=== PATIENT | female | born 1955 | race Two or more races ===

== ENCOUNTER 2017-01-08 21:38 | Inpatient (IN) | payer MEDICAID ==
[~2017-01-08] VITALS: Ht 175.3 cm; Wt 74.8 kg
[~2017-01-08 21:38] MED LIST: ASPI81CH43 PO; BISA-51 PO; CETI10CH PO; DICY20TA66 PO; DILT120C45 PO; FAM20T PO
[2017-01-08 22:37] LABS: Basophils # (auto) 0 uL; Basophils % (auto) 0.3 % (0.0-2.0); Eosinophils # (auto) 0 uL; Eosinophils % (auto) 0.3 % (0.0-7.0); Hematocrit 30.6 % (36.0-46.0); Hemoglobin 9.8 g/dL (12.2-16.2); Lymphocytes # (auto) 0.8 uL; Lymphocytes % (auto) 5.9 % (10.0-50.0); Mean Corpuscular Hemoglobin 29.9 pg (28.0-32.0); Mean Corpuscular Hgb Conc. 32.1 g/dL (32.0-36.0); Mean Corpuscular Volume 93.1 fL (80.0-100.0); Mean Platelet Volume 9.2 fL (7.4-10.4); Monocytes # (auto) 0.2 uL; Monocytes % (auto) 1.7 % (0.0-12.0); Neutrophils # (auto) 11.8 uL; Neutrophils % (auto) 91.8 % (37.0-80.0); Platelet Count (auto) 310 10^3/uL (140-450); Red Cell Distribution Width 14.3 % (11.6-16.0); White Blood Cell 12.8 10^3/uL (4.4-10.8)
[2017-01-08 22:41] LABS: Albumin 3.5 g/dL (3.4-5.0); Anion Gap 17 (5-15); Aspartate Aminotransferase 16 U/L (15-37); BUN/Creatinine Ratio 10.5; Blood Urea Nitrogen 75 mg/dL (7-18); Calcium 8.8 mg/dL (8.5-10.1); Carbon Dioxide 15 mmol/L (21-32); Chloride 107 mmol/L (98-107); GFR African American 8 mL/min; GFR Non-African American 6 mL/min; Glucose 160 mg/dL (74-106); Magnesium 2.8 mg/dL (1.6-2.6); Potassium 4.1 mmol/L (3.5-5.1); Sodium 139 mmol/L (136-145)
[2017-01-08 22:46] LABS: Alkaline Phosphatase 75 U/L (45-117); Bilirubin, Total 0.7 mg/dL (0.2-1.0)
[2017-01-09] MEDS ORDERED: ONDANSETRON HCL 4 MG/2 ML VIAL IV ONE ×2 (01:00→03:15)
[2017-01-09] MEDS ORDERED: cloNIDine HCL 0.1 MG TAB PO ONE (01:00)
[2017-01-09 01:01] LABS: Urine Bilirubin Negative (Negative); Urine Color Yellow (Yellow); Urine Hyaline Cast FEW /lpf (0 - 2); Urine Nitrite Negative (Negative); Urine RBC 40 /hpf (0 - 4); Urine Squamous Epithelial Cell FEW /hpf (<5); Urine Urobilinogen Normal (Negative); Urine pH 6.5 (5.0-8.0)
[2017-01-09 01:02] LABS: Urine Blood 2+ /uL (Negative); Urine Glucose 3+ mg/dL (Normal); Urine Ketone 1+ (Negative)
[2017-01-09] MEDS ORDERED: LABETALOL HCL 5 MG/ML 4ML SYRINGE IV ONE (02:43)
[2017-01-09] MEDS ORDERED: MORPHINE SULFATE 4 MG/ML SYRG IV ONE (03:15)
[2017-01-09] MEDS ORDERED: PROMETHAZINE HCL 25 MG/ML 1ML IV PRN (07:45)
[2017-01-09] MEDS ORDERED: ALBUTEROL SULF 2.5 MG/0.5ML(0.5%) NEB SOLN NEB PRN (07:45)
[2017-01-09] MEDS ORDERED: HYDROcodone-ACET 5/325MG TAB PO PRN (07:45)
[2017-01-09] MEDS ORDERED: NITROGLYCERIN 0.4 MG SL TAB SL PRN (07:45)
[2017-01-09] MEDS ORDERED: LORazepam 0.5 MG TAB PO PRN (07:45)
[2017-01-09] MEDS ORDERED: MORPHINE SULF INJ 2 MG/ML SYRINGE 1ML IV PRN ×2 (07:45)
[2017-01-09] MEDS ORDERED: LACTULOSE 20Gm/30ML SOLN PO PRN (07:45)
[2017-01-09] MEDS ORDERED: DEXTROSE (50%) 50ML SYRG IV PRN (07:45)
[2017-01-09] MEDS ORDERED: ACETAMINOPHEN 500 MG TAB PO PRN (07:45)
[2017-01-09] MEDS ORDERED: TEMAZEPAM 15 MG CAP PO PRN (07:45)
[2017-01-09 08:12] LABS: Basophils # (auto) 0 uL; Basophils % (auto) 0.2 % (0.0-2.0); DEFINITIVE VIEW TRANSMISSION; Eosinophils # (auto) 0 uL; Hematocrit 24.3 % (36.0-46.0); Lymphocytes # (auto) 0.4 uL; Lymphocytes % (auto) 4.2 % (10.0-50.0); Mean Corpuscular Hemoglobin 30.7 pg (28.0-32.0); Mean Corpuscular Hgb Conc. 32.9 g/dL (32.0-36.0); Mean Corpuscular Volume 93.3 fL (80.0-100.0); Monocytes # (auto) 0.1 uL; Monocytes % (auto) 1.2 % (0.0-12.0); Neutrophils # (auto) 9.4 uL; Neutrophils % (auto) 94.4 % (37.0-80.0); Platelet Count (auto) 232 10^3/uL (140-450)
[2017-01-09 08:15] LABS: Albumin 2.8 g/dL (3.4-5.0); BUN/Creatinine Ratio 10.5; Bilirubin, Total 0.3 mg/dL (0.2-1.0); Calcium 8.3 mg/dL (8.5-10.1); Potassium 3.9 mmol/L (3.5-5.1); Total Protein 5.9 g/dL (6.4-8.2)
[2017-01-09 08:30] LABS: INR 1.1 (0.9-1.15); Partial Thromboplastin Time 25.1 sec (22.64-33.71); Prothrombin Time 11.3 sec (9.37-12.3)
[2017-01-09] MEDS ORDERED: cefTRIAXone 1GM/50ML D5W 50 ML IV ONE (08:30)
[2017-01-09] MEDS ORDERED: FAMOTIDINE (10MG/ML) 2ML VL IV SCH ×2 (09:00)
[2017-01-09] MEDS ORDERED: ENOXAPARIN SOD 30 MG/0.3 ML SYRINGE SC SCH (10:00)
[2017-01-09] MEDS ORDERED: LORATADINE 10 MG TAB PO SCH (10:00)
[2017-01-09] MEDS: DILTIAZEM HCL 120MG ER CAP PO SCH (10:27)
[2017-01-09] MEDS ORDERED: SOD CHL 0.45% 1,000 ML IV SCH (10:45)
[2017-01-09] MEDS: InsuLIN REG 1unit/0.01ml Soln (100units/ml) SC SCH ×3 (11:30→21:29)
[2017-01-09] MEDS: ACCU-CHEK COMFORT CURVE STRIP VI SCH ×3 (11:51→21:28)
[2017-01-09] MEDS ORDERED: FURO40TA4 PO (11:52)
[2017-01-09] MEDS ORDERED: FOLITAB14 OR (11:52)
[2017-01-09] MEDS ORDERED: [UNRECOGNIZED DRUG - CODE] IV (11:52)
[2017-01-09] MEDS ORDERED: FERR18TA2 PO (11:52)
[2017-01-09] MEDS ORDERED: ESCI10TA PO (11:52)
[2017-01-09 11:57] LABS: Amylase 118 U/L (25-115)
[2017-01-09] MEDS ORDERED: PANTOPRAZOLE SODIUM 40 MG/10 ML VIAL IV ONE (12:15)
[2017-01-09 13:00] VITALS: BP 153/66
[2017-01-09] MEDS ORDERED: DICYCLOMINE HCL 10 MG CAP PO SCH (14:00)
[2017-01-09] MEDS: ALBUTEROL SULF 2.5 MG/0.5ML(0.5%) NEB SOLN NEB SCH ×2 (15:45→18:16)
[2017-01-09 17:00] VITALS: BP 124/76
[2017-01-09 18:12] LABS: Hematocrit 23.5 % (36.0-46.0); Hemoglobin 7.6 g/dL (12.2-16.2)
[2017-01-09] MEDS: PANTOPRAZOLE 40 MG TAB PO SCH (21:28)
[2017-01-09 21:48] VITALS: BP 152/59
[2017-01-10 01:34] LABS: Hematocrit 22.8 % (36.0-46.0); Hemoglobin 7.7 g/dL (12.2-16.2)
[2017-01-10] MEDS: ALBUTEROL SULF 2.5 MG/0.5ML(0.5%) NEB SOLN NEB SCH ×3 (01:52→13:27)
[2017-01-10 05:00] VITALS: BP 154/65
[2017-01-10] MEDS: InsuLIN REG 1unit/0.01ml Soln (100units/ml) SC SCH ×2 (06:32→11:30)
[2017-01-10] MEDS: ACCU-CHEK COMFORT CURVE STRIP VI SCH ×2 (06:32→11:30)
[2017-01-10 06:36] LABS: Basophils # (auto) 0 uL; Basophils % (auto) 0.4 % (0.0-2.0); DEFINITIVE VIEW TRANSMISSION; Eosinophils # (auto) 0.1 uL; Eosinophils % (auto) 1.1 % (0.0-7.0); Hematocrit 22.5 % (36.0-46.0); Hemoglobin 7.3 g/dL (12.2-16.2); Lymphocytes # (auto) 1.7 uL; Lymphocytes % (auto) 16.9 % (10.0-50.0); Mean Corpuscular Hemoglobin 30.5 pg (28.0-32.0); Mean Corpuscular Hgb Conc. 32.4 g/dL (32.0-36.0); Mean Platelet Volume 9.2 fL (7.4-10.4); Monocytes # (auto) 1.1 uL; Monocytes % (auto) 10.6 % (0.0-12.0); Neutrophils # (auto) 7.1 uL; Platelet Count (auto) 196 10^3/uL (140-450); Red Cell Distribution Width 14.4 % (11.6-16.0)
[2017-01-10 06:52] LABS: Albumin 2.6 g/dL (3.4-5.0); BUN/Creatinine Ratio 10.9; Bilirubin, Total 0.2 mg/dL (0.2-1.0); Calcium 7.8 mg/dL (8.5-10.1); Potassium 3.7 mmol/L (3.5-5.1); Total Protein 5.4 g/dL (6.4-8.2)
[2017-01-10] MEDS ORDERED: SODIUM CHLORIDE LOCK 10 ML ONE (07:34)
[2017-01-10] MEDS ORDERED: LIDOCAINE VISCOUS 2% 15ML UD ONE (07:34)
[2017-01-10] MEDS ORDERED: diphenhdrAMINE HCL 50 MG/1 ML VL ONE (07:35)
[2017-01-10] MEDS ORDERED: SODIUM CHL 0.9% 1000 ML BAG XX ONE (08:00)
[2017-01-10] MEDS ORDERED: EPOETIN ALFA 10,000 UNIT/1 ML VIAL IV ONE (08:00)
[2017-01-10 08:04] LABS: Cholesterol 145 mg/dL (<200); HDL Cholesterol 64 mg/dL (40-59); LDL Cholesterol 76 mg/dL (<100); Triglycerides 90 mg/dL (<150)
[2017-01-10 08:30] VITALS: BP 178/71
[2017-01-10] MEDS ORDERED: cefTRIAXone 1GM/50ML D5W 50 ML IV SCH (09:00)
[2017-01-10 09:27] VITALS: BP 178/71
[2017-01-10] MEDS: MIDAZOLAM HCL 5 MG/ML-1ML VIAL ONE ×2 (09:30→09:33)
[2017-01-10] MEDS: fentaNYL CITRATE 100 MCG/2 ML VL ONE ×2 (09:30→09:33)
[2017-01-10] MEDS ORDERED: PANTOPRAZOLE SODIUM 40 MG/10 ML VIAL IV SCH (10:00)
[2017-01-10 12:12] VITALS: BP_SYST 134; BP_SYST 151; BP_DIAS 68; BP_DIAS 94
[2017-01-10] MEDS: DILTIAZEM HCL 120MG ER CAP PO SCH (12:28)
[2017-01-10] MEDS: PANTOPRAZOLE 40 MG TAB PO SCH (12:29)
[2017-01-10] MEDS ORDERED: EPOETIN ALFA 10,000 UNIT/1 ML VIAL SC ONE (12:45)
[2017-01-10] MEDS ORDERED: LEXAPRO 10 MG PO SCH (15:15)
[2017-01-10 17:21] VITALS: BP 153/65
[2017-01-10] MEDS ORDERED: OMEP20CA5 OR (17:35)
[2017-01-10] MEDS ORDERED: SUCR1TAB38 OR (17:35)
[2017-01-10] MEDS ORDERED: FERROUS SULFATE 325 MG TAB PO SCH (18:00)
[2017-01-10 18:42] VITALS: BP 153/65
[2017-01-10] MEDS ORDERED: LORATADINE 10 MG TAB PO SCH (22:00)
== END 2017-01-10 19:50 | disposition home or self-care (01) | DRG 720 ==
LOC: EDBD 21:38 → ER 21:42 → TELE 21:43 → TELE-E-ADS 01-09 10:58 → TELE-EAST 01-09 12:02
PROVIDERS: ADMIT Internal Medicine; ATTEND Internal Medicine
PROC: 0DB68ZX Excision of Stomach, Via Natural or Artificial Opening Endoscopic, Diagnostic (ICD-10-PCS; principal; 2017-01-10 09:27)
DX: A41.9 Sepsis, unspecified organism (principal); I13.2 Hypertensive heart and chronic kidney disease with heart failure and with stage 5 chronic kidney disease, or end stage renal disease; K85.90 Acute pancreatitis without necrosis or infection, unspecified; N18.6 End stage renal disease; R18.8 Other ascites; E11.22 Type 2 diabetes mellitus with diabetic chronic kidney disease; J44.9 Chronic obstructive pulmonary disease, unspecified; N39.0 Urinary tract infection, site not specified; N12 Tubulo-interstitial nephritis, not specified as acute or chronic; I50.9 Heart failure, unspecified; K52.9 Noninfective gastroenteritis and colitis, unspecified; Z99.2 Dependence on renal dialysis; F41.9 Anxiety disorder, unspecified; E86.0 Dehydration; F32.9 Major depressive disorder, single episode, unspecified; D63.8 Anemia in other chronic diseases classified elsewhere; K21.9 Gastro-esophageal reflux disease without esophagitis; K29.00 Acute gastritis without bleeding; K29.80 Duodenitis without bleeding; Z79.899 Other long term (current) drug therapy; Z82.49 Family history of ischemic heart disease and other diseases of the circulatory system; Z90.710 Acquired absence of both cervix and uterus; Z81.1 Family history of alcohol abuse and dependence; Z82.0 Family history of epilepsy and other diseases of the nervous system; Z88.1 Allergy status to other antibiotic agents; Z88.5 Allergy status to narcotic agent; Z79.82 Long term (current) use of aspirin; Z81.3 Family history of other psychoactive substance abuse and dependence
CPT/HCPCS: 36415; 43235; 71010; 74176; 80053; 80061; 81001; 82150; 82378; 82962; 83036; 83690; 83735; 84484; 85014; 85018; 85025; 85045; 85610; 85652; 85730; 86141; 86803; 86850; 86900; 86901; 87086; 87340; 88341; 93005; 94640; 96365; 96372; 96375; C9113; J0696; J0885; J1815; J2250; J2405; J3490

== ENCOUNTER 2018-03-29 07:06 | Inpatient (IN) | payer MEDICARE, MEDICAID ==
[~2018-03-29] VITALS: Ht 172.7 cm; Wt 83.1 kg
[~2018-03-29 07:06] MED LIST changes: -DICY20TA66 PO; -DILT120C45 PO; +ESCI10TA PO; -FAM20T PO; +FERR18TA2 PO; +FOLITAB14 OR; +FURO40TA4 PO; +OMEP20CA74 OR; +SUCR1TAB38 OR; +[UNRECOGNIZED DRUG - CODE] IV
[2018-03-29] MEDS ORDERED: PROMETHAZINE HCL 25 MG/ML 1ML ONE (08:17)
[2018-03-29] MEDS ORDERED: PROMETHAZINE HCL 25 MG/ML 1ML IV ONE (08:30)
[2018-03-29 08:36] LABS: Basophils # (auto) 0 uL; Basophils % (auto) 0.7 % (0.0-2.0); Eosinophils # (auto) 0 uL; Eosinophils % (auto) 0.6 % (0.0-7.0); Hematocrit 37.3 % (36.0-46.0); Hemoglobin 12.6 g/dL (12.2-16.2); Lymphocytes # (auto) 0.7 uL; Lymphocytes % (auto) 14.6 % (10.0-50.0); Mean Corpuscular Hemoglobin 32.1 pg (28.0-32.0); Mean Corpuscular Hgb Conc. 33.9 g/dL (32.0-36.0); Mean Corpuscular Volume 94.7 fL (80.0-100.0); Monocytes # (auto) 0.2 uL; Monocytes % (auto) 4.1 % (0.0-12.0); Nucleated Red Blood Cells % 0.1 %; Platelet Count (auto) 220 10^3/uL (140-450); Red Blood Cells 3.94 10^6/uL (4.0-5.20); Red Cell Distribution Width 14.1 % (11.8-14.3)
[2018-03-29] MEDS ORDERED: SODIUM CHLORIDE 0.9% 1,000 ML IV ONE ×2 (08:45→09:28)
[2018-03-29 09:03] LABS: Alanine Aminotransferase 20 U/L (13-56); Alkaline Phosphatase 124 U/L (45-117); Amylase 204 U/L (25-115); Anion Gap 18 (5-15); Aspartate Aminotransferase 17 U/L (15-37); BUN/Creatinine Ratio 8.2; Bilirubin, Total 0.7 mg/dL (0.2-1.0); Blood Urea Nitrogen 47 mg/dL (7-18); Calcium 9.1 mg/dL (8.5-10.1); Carbon Dioxide 21 mmol/L (21-32); Chloride 99 mmol/L (98-107); GFR African American 10 mL/min; GFR Non-African American 8 mL/min; Glucose 202 mg/dL (74-106); Lipase 962 U/L (73-393); Magnesium 2.7 mg/dL (1.6-2.6); Potassium 3.1 mmol/L (3.5-5.1); Sodium 138 mmol/L (136-145); Total Protein 8.1 g/dL (6.4-8.2)
[2018-03-29] MEDS ORDERED: MORPHINE SULFATE 4 MG/ML SYR/VIAL IV ONE ×2 (09:30→12:30)
[2018-03-29 09:40] LABS: Urine Amorphous Crystal FEW /hpf (None Seen); Urine Bacteria MANY /hpf (None Seen); Urine Blood 1+ /uL (Negative); Urine Specific Gravity 1.011 (1.001-1.035); Urine WBC 3 /hpf (0 - 5)
[2018-03-29] MEDS ORDERED: FAMOTIDINE 20 MG TAB PO ONE (10:45)
[2018-03-29] MEDS ORDERED: cefTRIAXone 1GM/10ml IVPUSH 10 ML IV ONE ×2 (13:00→13:30)
[2018-03-29] MEDS ORDERED: BISACODYL 5 MG EC TAB PO PRN (13:30)
[2018-03-29] MEDS ORDERED: MORPHINE SULFATE 4 MG/ML SYR/VIAL IV PRN ×3 (13:30)
[2018-03-29] MEDS ORDERED: ENALAPRILAT 1.25 MG/ML-1ML VIAL IV PRN (13:30)
[2018-03-29] MEDS ORDERED: NITROGLYCERIN 0.4 MG SL TAB SL PRN (13:30)
[2018-03-29] MEDS ORDERED: NITROGLYCERIN 0.2MG/HR TOPICAL PATCH TD SCH (14:00)
[2018-03-29] MEDS: LORazepam 2MG/ML-1ML VIAL IV PRN ×2 (14:08→20:11)
[2018-03-29] MEDS: metroNIDAZOLE 500MG/100ML 100 ML IV SCH ×3 (14:51→23:43)
[2018-03-29 16:51] VITALS: BP 168/85
[2018-03-29] MEDS: PROMETHAZINE HCL 25 MG/ML 1ML IV PRN (18:00)
[2018-03-29] MEDS: FUROSEMIDE 40 MG TAB PO SCH (18:00)
[2018-03-29] MEDS: SUCRALFATE 1 GM TAB PO SCH (18:04)
[2018-03-29] MEDS ORDERED: LABETALOL HCL 5 MG/ML ML 20ML VIAL IV PRN ×2 (18:30→20:45)
[2018-03-29] MEDS: NITROGLYCERIN 0.2MG/HR TOPICAL PATCH TD SCH (18:49)
[2018-03-29] MEDS ORDERED: cloNIDine HCL 0.1 MG TAB PO PRN (19:15)
[2018-03-29] MEDS ORDERED: cloNIDine HCL 0.1 MG TAB PO ONE (19:15)
[2018-03-29] MEDS ORDERED: ENALAPRIL MALEATE 10 MG TAB PO ONE (20:45)
[2018-03-29] MEDS ORDERED: amLODIPine BESYLATE 5 MG TAB PO ONE (20:45)
[2018-03-29] MEDS ORDERED: LABETALOL HCL 5 MG/ML ML 20ML VIAL IV ONE (20:45)
[2018-03-29] MEDS ORDERED: CARVEDILOL 3.125 MG TAB PO ONE (21:00)
[2018-03-29] MEDS: ISOSORBIDE MONONITRATE 60 MG TAB PO SCH (21:47)
[2018-03-29 22:00] VITALS: BP 107/51
[2018-03-29] MEDS ORDERED: CARVEDILOL 3.125 MG TAB PO SCH (22:00)
[2018-03-29 22:51] VITALS: BP 92/44
[2018-03-30 05:00] VITALS: BP 117/49
[2018-03-30 05:39] LABS: Basophils # (auto) 0 uL; Basophils % (auto) 0.4 % (0.0-2.0); Eosinophils # (auto) 0 uL; Eosinophils % (auto) 0.1 % (0.0-7.0); Hematocrit 30.3 % (36.0-46.0); Hemoglobin 10.3 g/dL (12.2-16.2); Lymphocytes # (auto) 1.1 uL; Lymphocytes % (auto) 16.5 % (10.0-50.0); Mean Corpuscular Hemoglobin 32.6 pg (28.0-32.0); Monocytes # (auto) 0.6 uL; Monocytes % (auto) 8.9 % (0.0-12.0); Neutrophils # (auto) 4.9 uL; Neutrophils % (auto) 74.1 % (37.0-80.0); Platelet Count (auto) 202 10^3/uL (140-450); Red Blood Cells 3.16 10^6/uL (4.0-5.20); White Blood Cell 6.6 10^3/uL (4.4-10.8)
[2018-03-30] MEDS: metroNIDAZOLE 500MG/100ML 100 ML IV SCH ×4 (05:42→23:57)
[2018-03-30] MEDS: FUROSEMIDE 40 MG TAB PO SCH ×2 (05:42→18:11)
[2018-03-30 05:57] LABS: BUN/Creatinine Ratio 8.6; Calcium 7.9 mg/dL (8.5-10.1); Potassium 3.3 mmol/L (3.5-5.1)
[2018-03-30 06:00] LABS: Bilirubin, Total 0.5 mg/dL (0.2-1.0); Total Protein 6.4 g/dL (6.4-8.2)
[2018-03-30] MEDS: SUCRALFATE 1 GM TAB PO SCH ×3 (06:05→18:13)
[2018-03-30 08:50] VITALS: BP 110/50
[2018-03-30] MEDS: cefTRIAXone 1GM/10ml IVPUSH 10 ML IV SCH (09:19)
[2018-03-30] MEDS: LORATADINE 10 MG TAB PO SCH (09:49)
[2018-03-30] MEDS: FERROUS FUMARATE 18 MG PO SCH (09:49)
[2018-03-30] MEDS: ESCITALOPRAM OXALATE 10 MG PO SCH (09:49)
[2018-03-30] MEDS: ISOSORBIDE MONONITRATE 60 MG TAB PO SCH ×3 (09:49→21:57)
[2018-03-30] MEDS: CARVEDILOL 3.125 MG TAB PO SCH ×3 (09:49→22:08)
[2018-03-30] MEDS: B-COMPLEX W/ C & FOLIC ACID(NEPHROVITE TAB) PO SCH (09:50)
[2018-03-30] MEDS: ENALAPRIL MALEATE 10 MG TAB PO SCH ×3 (09:50→21:59)
[2018-03-30] MEDS: amLODIPine BESYLATE 5 MG TAB PO SCH (09:50)
[2018-03-30] MEDS ORDERED: PANTOPRAZOLE 40 MG TAB PO SCH (10:00)
[2018-03-30] MEDS ORDERED: ENALAPRIL MALEATE 2.5 MG TAB PO SCH (10:00)
[2018-03-30] MEDS ORDERED: ADENOSINE 67 MG in GIVE UN-DILUTED 0 ML IV STA (11:00)
[2018-03-30 11:51] VITALS: BP 128/51
[2018-03-30] MEDS ORDERED: ALBUTEROL SULF 2.5 MG/0.5ML(0.5%) NEB SOLN ONE (12:16)
[2018-03-30] MEDS ORDERED: IPRATROPIUM BROM 0.5 MG/2.5ML INH SOL ONE (12:16)
[2018-03-30] MEDS ORDERED: LORazepam 2MG/ML-1ML VIAL IV ONE (15:00)
[2018-03-30 17:23] VITALS: BP 133/62
[2018-03-30] MEDS ORDERED: EPOETIN ALFA 3,000 UNIT/1 ML VIAL IV ONE (19:00)
[2018-03-30] MEDS: NITROGLYCERIN 0.2MG/HR TOPICAL PATCH TD SCH (19:00)
[2018-03-30] MEDS ORDERED: EPOETIN ALFA 2,000 UNIT/1 ML VIAL IV ONE (19:15)
[2018-03-30] MEDS: PROMETHAZINE HCL 25 MG/ML 1ML IV PRN (21:54)
[2018-03-30 22:00] VITALS: BP 133/55
[2018-03-31] VITALS (8 sets, daily range): BP systolic 109–158; BP diastolic 52–71
[2018-03-31 05:56] LABS: Basophils # (auto) 0.1 uL; Basophils % (auto) 1.3 % (0.0-2.0); Eosinophils # (auto) 0.1 uL; Eosinophils % (auto) 1.8 % (0.0-7.0); Hematocrit 29.6 % (36.0-46.0); Hemoglobin 10.1 g/dL (12.2-16.2); Lymphocytes # (auto) 2.7 uL; Lymphocytes % (auto) 38.2 % (10.0-50.0); Mean Corpuscular Hemoglobin 32.5 pg (28.0-32.0); Mean Corpuscular Volume 95.5 fL (80.0-100.0); Monocytes # (auto) 0.6 uL; Monocytes % (auto) 7.9 % (0.0-12.0); Neutrophils # (auto) 3.6 uL; Neutrophils % (auto) 50.8 % (37.0-80.0); Platelet Count (auto) 210 10^3/uL (140-450); Red Cell Distribution Width 14.4 % (11.8-14.3)
[2018-03-31 06:01] LABS: Partial Thromboplastin Time 28.1 sec (22.64-33.71); Prothrombin Time 10.9 sec (9.37-12.3)
[2018-03-31 06:12] LABS: Albumin 3.1 g/dL (3.4-5.0); Calcium 7.5 mg/dL (8.5-10.1); Potassium 3.1 mmol/L (3.5-5.1)
[2018-03-31 06:18] LABS: BUN/Creatinine Ratio 8.1; Bilirubin, Total 0.7 mg/dL (0.2-1.0); Total Protein 6.5 g/dL (6.4-8.2)
[2018-03-31] MEDS: FUROSEMIDE 40 MG TAB PO SCH ×2 (06:46→18:00)
[2018-03-31] MEDS: SUCRALFATE 1 GM TAB PO SCH ×3 (06:46→16:45)
[2018-03-31] MEDS: metroNIDAZOLE 500MG/100ML 100 ML IV SCH ×4 (06:46→23:49)
[2018-03-31] MEDS: PROMETHAZINE HCL 25 MG/ML 1ML IV PRN ×3 (09:30→23:55)
[2018-03-31] MEDS: LORazepam 2MG/ML-1ML VIAL IV PRN (09:39)
[2018-03-31] MEDS: FERROUS FUMARATE 18 MG PO SCH (10:00)
[2018-03-31] MEDS: amLODIPine BESYLATE 5 MG TAB PO SCH (10:00)
[2018-03-31] MEDS: B-COMPLEX W/ C & FOLIC ACID(NEPHROVITE TAB) PO SCH (10:00)
[2018-03-31] MEDS: ISOSORBIDE MONONITRATE 60 MG TAB PO SCH ×2 (10:00→22:15)
[2018-03-31] MEDS: ENALAPRIL MALEATE 10 MG TAB PO SCH ×2 (10:00→22:14)
[2018-03-31] MEDS: CARVEDILOL 3.125 MG TAB PO SCH ×2 (10:00→22:15)
[2018-03-31] MEDS: ESCITALOPRAM OXALATE 10 MG PO SCH (10:00)
[2018-03-31] MEDS: LORATADINE 10 MG TAB PO SCH (10:00)
[2018-03-31] MEDS ORDERED: EPOETIN ALFA 2,000 UNIT/1 ML VIAL IV ONE (12:00)
[2018-03-31] MEDS ORDERED: EPOETIN ALFA 3,000 UNIT/1 ML VIAL IV ONE (12:00)
[2018-03-31] MEDS ORDERED: SODIUM CHL 0.9% 1000 ML BAG XX ONE (12:00)
[2018-03-31] MEDS: cefTRIAXone 1GM/10ml IVPUSH 10 ML IV SCH (16:45)
[2018-03-31] MEDS: PANTOPRAZOLE 40 MG/10 ML VIAL IV SCH (16:45)
[2018-03-31] MEDS ORDERED: ESCI20TA51 PO (18:23)
[2018-03-31] MEDS ORDERED: MULT-647 PO (18:23)
[2018-03-31] MEDS ORDERED: FERR-20 PO (18:23)
[2018-03-31] MEDS ORDERED: ERGO400T PO (18:23)
[2018-03-31] MEDS ORDERED: FERR1TAB17 PO (18:25)
[2018-03-31] MEDS: NITROGLYCERIN 0.2MG/HR TOPICAL PATCH TD SCH (19:00)
[2018-03-31] MEDS: ESCITALOPRAM 5 MG PO SCH (19:30)
[2018-03-31] MEDS: ESCITALOPRAM 20 MG TAB PO SCH (19:30)
[2018-04-01 05:18] VITALS: BP 114/53
[2018-04-01] MEDS: metroNIDAZOLE 500MG/100ML 100 ML IV SCH ×3 (05:44→17:11)
[2018-04-01] MEDS: PROMETHAZINE HCL 25 MG/ML 1ML IV PRN (05:44)
[2018-04-01] MEDS: FUROSEMIDE 40 MG TAB PO SCH ×2 (06:00→17:11)
[2018-04-01] MEDS: SUCRALFATE 1 GM TAB PO SCH ×3 (06:27→17:11)
[2018-04-01 07:10] LABS: INR 0.99 (0.9-1.15); Partial Thromboplastin Time 27.7 sec (22.64-33.71); Prothrombin Time 10.8 sec (9.37-12.3)
[2018-04-01 09:00] VITALS: BP 128/90
[2018-04-01] MEDS: ESCITALOPRAM 5 MG PO SCH (10:00)
[2018-04-01] MEDS: B-COMPLEX W/ C & FOLIC ACID(NEPHROVITE TAB) PO SCH (10:00)
[2018-04-01] MEDS: FERROUS SULFATE 325 MG TAB PO SCH (10:00)
[2018-04-01] MEDS: ESCITALOPRAM 20 MG TAB PO SCH (10:00)
[2018-04-01] MEDS: LORATADINE 10 MG TAB PO SCH (10:00)
[2018-04-01] MEDS: cefTRIAXone 1GM/10ml IVPUSH 10 ML IV SCH (10:13)
[2018-04-01] MEDS: PANTOPRAZOLE 40 MG/10 ML VIAL IV SCH (10:15)
[2018-04-01] MEDS: ENALAPRIL MALEATE 10 MG TAB PO SCH ×2 (10:16→22:14)
[2018-04-01] MEDS: ISOSORBIDE MONONITRATE 60 MG TAB PO SCH ×2 (10:17→22:14)
[2018-04-01] MEDS: amLODIPine BESYLATE 5 MG TAB PO SCH (10:17)
[2018-04-01] MEDS: CARVEDILOL 3.125 MG TAB PO SCH ×2 (10:18→22:13)
[2018-04-01] MEDS ORDERED: ROCURONIUM 10MG/ML 10ML VIAL IV ONE (10:25)
[2018-04-01] MEDS ORDERED: MEPERIDINE HCL (50 MG/ML) 1 ML VIAL ONE (10:25)
[2018-04-01] MEDS ORDERED: ONDANSETRON HCL 4 MG/2 ML VIAL ONE ×2 (10:25→12:50)
[2018-04-01] MEDS ORDERED: PROPOFOL 10 MG/ML 20 ML IV ONE (10:25)
[2018-04-01] MEDS ORDERED: fentaNYL CITRATE 100 MCG/2 ML VL ONE (10:25)
[2018-04-01] MEDS ORDERED: MIDAZOLAM HCL 1MG/1ML-2 ML VIAL ONE (10:25)
[2018-04-01] MEDS ORDERED: ACCU-CHEK COMFORT CURVE STRIP VI ONE (12:00)
[2018-04-01] MEDS ORDERED: GLYCOPYRROLATE 0.2 MG/ML 1ML VIAL ONE (12:17)
[2018-04-01] MEDS ORDERED: NEOSTIGMINE 1 MG/ML INJ (10mg/10ML VIAL) ONE (12:17)
[2018-04-01] MEDS: MORPHINE SULFATE 4 MG/ML SYR/VIAL IV PRN ×2 (12:55→13:35)
[2018-04-01 13:00] VITALS: BP 147/90
[2018-04-01] MEDS ORDERED: ONDANSETRON HCL 4 MG/2 ML VIAL IV ONE (13:00)
[2018-04-01 17:00] VITALS: BP 142/72
[2018-04-01 22:00] VITALS: BP 150/71
[2018-04-01] MEDS: NITROGLYCERIN 0.2MG/HR TOPICAL PATCH TD SCH (22:13)
[2018-04-02] VITALS (8 sets, daily range): BP systolic 115–152; BP diastolic 56–81
[2018-04-02] MEDS: metroNIDAZOLE 500MG/100ML 100 ML IV SCH ×3 (00:24→12:00)
[2018-04-02] MEDS: FUROSEMIDE 40 MG TAB PO SCH (06:09)
[2018-04-02] MEDS: SUCRALFATE 1 GM TAB PO SCH ×2 (06:09→14:45)
[2018-04-02] MEDS ORDERED: EPOETIN ALFA 10,000 UNIT/1 ML VIAL IV ONE (10:15)
[2018-04-02] MEDS ORDERED: SODIUM CHL 0.9% 1000 ML BAG XX ONE (10:15)
[2018-04-02] MEDS: PROMETHAZINE HCL 25 MG/ML 1ML IV PRN (14:10)
[2018-04-02] MEDS: PANTOPRAZOLE 40 MG/10 ML VIAL IV SCH (14:37)
[2018-04-02] MEDS: B-COMPLEX W/ C & FOLIC ACID(NEPHROVITE TAB) PO SCH (14:38)
[2018-04-02] MEDS: ESCITALOPRAM 5 MG PO SCH (14:38)
[2018-04-02] MEDS: ESCITALOPRAM 20 MG TAB PO SCH (14:38)
[2018-04-02] MEDS: cefTRIAXone 1GM/10ml IVPUSH 10 ML IV SCH (14:38)
[2018-04-02] MEDS: LORATADINE 10 MG TAB PO SCH (14:40)
[2018-04-02] MEDS: CARVEDILOL 3.125 MG TAB PO SCH (14:40)
[2018-04-02] MEDS: amLODIPine BESYLATE 5 MG TAB PO SCH (14:40)
[2018-04-02] MEDS: ISOSORBIDE MONONITRATE 60 MG TAB PO SCH (14:41)
[2018-04-02] MEDS: ENALAPRIL MALEATE 10 MG TAB PO SCH (14:41)
[2018-04-02] MEDS: FERROUS SULFATE 325 MG TAB PO SCH (14:41)
== END 2018-04-02 17:51 | disposition home health service (06) | DRG 417 ==
LOC: EDBD 07:06 → ER 07:06 → TELE 07:07 → TELE-WESTW 16:31
PROVIDERS: ADMIT Internal Medicine; ATTEND Internal Medicine
PROC: 5A1D70Z Performance of Urinary Filtration, Intermittent, Less than 6 Hours Per Day (ICD-10-PCS; 2018-03-31)
PROC: 0FT44ZZ Resection of Gallbladder, Percutaneous Endoscopic Approach (ICD-10-PCS; principal; 2018-04-01 11:55)
PROC: 5A1D70Z Performance of Urinary Filtration, Intermittent, Less than 6 Hours Per Day (ICD-10-PCS; 2018-04-02)
DX: K85.10 Biliary acute pancreatitis without necrosis or infection (principal); N18.6 End stage renal disease; I13.2 Hypertensive heart and chronic kidney disease with heart failure and with stage 5 chronic kidney disease, or end stage renal disease; E11.21 Type 2 diabetes mellitus with diabetic nephropathy; E11.65 Type 2 diabetes mellitus with hyperglycemia; N12 Tubulo-interstitial nephritis, not specified as acute or chronic; K80.10 Calculus of gallbladder with chronic cholecystitis without obstruction; N39.0 Urinary tract infection, site not specified; E11.22 Type 2 diabetes mellitus with diabetic chronic kidney disease; I50.9 Heart failure, unspecified; E87.6 Hypokalemia; Z99.2 Dependence on renal dialysis; K52.9 Noninfective gastroenteritis and colitis, unspecified; K21.9 Gastro-esophageal reflux disease without esophagitis; K59.00 Constipation, unspecified; F32.9 Major depressive disorder, single episode, unspecified; K42.9 Umbilical hernia without obstruction or gangrene; I16.0 Hypertensive urgency; R26.81 Unsteadiness on feet; R42 Dizziness and giddiness; D63.8 Anemia in other chronic diseases classified elsewhere; D64.9 Anemia, unspecified; F41.9 Anxiety disorder, unspecified; M47.812 Spondylosis without myelopathy or radiculopathy, cervical region; Z82.49 Family history of ischemic heart disease and other diseases of the circulatory system; Z90.710 Acquired absence of both cervix and uterus; Z83.3 Family history of diabetes mellitus; Z88.1 Allergy status to other antibiotic agents; Z88.5 Allergy status to narcotic agent; Z88.6 Allergy status to analgesic agent; Z88.8 Allergy status to other drugs, medicaments and biological substances; Z90.49 Acquired absence of other specified parts of digestive tract
CPT/HCPCS: 36415; 70551; 71045; 72141; 74176; 76705; 80053; 81001; 82150; 82247; 82550; 82962; 83690; 83735; 83880; 84443; 84484; 85025; 85610; 85652; 85730; 86141; 86850; 86900; 86901; 87081; 87086; 90935; 93005; 93017; 93306; 94640; 96361; 96374; 96375; C9113; J0153; J0885; J2250; J2405; J2704; J3490; Q4081

== ENCOUNTER 2019-10-06 11:14 | Inpatient (IN) | payer MEDICARE, MEDICAID ==
[2019-10-05 15:55] LABS: Basophils # (auto) 0.1 uL; Basophils % (auto) 0.8 % (0.0-2.0); Eosinophils # (auto) 0.1 uL; Eosinophils % (auto) 1.4 % (0.0-7.0); Hematocrit 28.7 % (36.0-46.0); Hemoglobin 10.2 g/dL (12.2-16.2); Lymphocytes # (auto) 1.9 uL; Mean Corpuscular Hemoglobin 33.6 pg (28.0-32.0); Mean Corpuscular Hgb Conc. 35.4 g/dL (32.0-36.0); Monocytes # (auto) 0.6 uL; Monocytes % (auto) 7.4 % (0.0-12.0); Neutrophils # (auto) 5.1 uL; Neutrophils % (auto) 66.4 % (37.0-80.0); Platelet Count (auto) 301 10^3/uL (140-450); Red Blood Cells 3.03 10^6/uL (4.0-5.20); Red Cell Distribution Width 13.5 % (11.8-14.3); White Blood Cell 7.7 10^3/uL (4.4-10.8)
[2019-10-05 16:05] LABS: Urine Bacteria NONE SEEN /hpf (None Seen); Urine Blood Negative /uL (Negative); Urine Hyaline Cast FEW /lpf (0 - 2); Urine Specific Gravity 1.014 (1.001-1.035); Urine WBC 16 /hpf (0 - 5)
[2019-10-05 16:15] LABS: Albumin 3.2 g/dL (3.4-5.0); BUN/Creatinine Ratio 7.5; Calcium 8.9 mg/dL (8.5-10.1); Potassium 3.6 mmol/L (3.5-5.1)
[2019-10-05 16:18] LABS: Bilirubin, Total 0.4 mg/dL (0.2-1.0)
[2019-10-05 16:54] LABS: INR 1.07 (0.9-1.15); Partial Thromboplastin Time 28.6 sec (23.64-32.05)
[~2019-10-06] VITALS: Ht 177.8 cm; Wt 96.5 kg
[~2019-10-06 11:14] MED LIST changes: +ALPR0.25 PO; +AMOX500T86 PO; -ASPI81CH43 PO; -BISA-51 PO; -CETI10CH PO; -ESCI10TA PO; -FERR18TA2 PO; -FOLITAB14 OR; -FURO40TA4 PO; +LEVO250T69 PO; -OMEP20CA74 OR; +SEVE800T8 PO; -SUCR1TAB38 OR; -[UNRECOGNIZED DRUG - CODE] IV
[2019-10-06] MEDS ORDERED: ceFAZolin 1GM VL ONE (12:14)
[2019-10-06] MEDS ORDERED: ONDANSETRON HCL 4 MG/2 ML VIAL IV PRN ×2 (12:15→14:15)
[2019-10-06] MEDS ORDERED: fentaNYL CITRATE 100 MCG/2 ML VL IV PRN (12:15)
[2019-10-06] MEDS ORDERED: MIDAZOLAM HCL 1MG/1ML-2 ML VIAL IV PRN (12:15)
[2019-10-06] MEDS ORDERED: LABETALOL HCL 5 MG/ML 4ML SYRINGE IV PRN (12:15)
[2019-10-06] MEDS ORDERED: ceFAZolin 1GM/50ML 50 ML IV ONE (12:15)
[2019-10-06] MEDS ORDERED: ePHEDrine SULFATE 50 MG/ML AMP IV PRN (12:15)
[2019-10-06] MEDS ORDERED: fentaNYL CITRATE 100 MCG/2 ML VL ONE (12:19)
[2019-10-06] MEDS ORDERED: MIDAZOLAM HCL 1MG/1ML-2 ML VIAL ONE (12:20)
[2019-10-06] MEDS ORDERED: PROPOFOL 10 MG/ML 20 ML IV ONE (12:26)
[2019-10-06] MEDS ORDERED: MORPHINE SULF INJ 2 MG/ML SYRINGE 1ML IV PRN ×2 (14:15)
[2019-10-06] MEDS ORDERED: VANCOMYCIN PER PHARMACY 0 MG IV SCH (14:15)
[2019-10-06] MEDS ORDERED: LABETALOL HCL 5 MG/ML ML 20ML VIAL IV PRN (14:15)
[2019-10-06] MEDS ORDERED: ALPRAZolam 0.5 MG TAB PO PRN (14:15)
[2019-10-06] MEDS ORDERED: traMADol HCL 50 MG TAB PO PRN (14:15)
[2019-10-06] MEDS ORDERED: DEXTROSE (50%) 50ML SYRG IV PRN (14:15)
[2019-10-06] MEDS ORDERED: cefTRIAXone 1GM/50ML D5W 50 ML IV ONE (14:15)
[2019-10-06] MEDS ORDERED: NITROGLYCERIN 0.4 MG SL TAB SL PRN (14:15)
[2019-10-06] MEDS ORDERED: hydrALAZINE HCL 25 MG TAB PO ONE (14:15)
--- NOTE | 2019-10-06 16:20 | NUR ---
Received patient from OR. Pt is S/P Right great toe amputation. Pts right foot dressing in dry and intact. Patients vitals signs stable and no distress noted. For safety pts bed is locked in the lowest position with 2 side rails up. Placed a bed side commode with in reach for patient. Pt denies pain, will continue to monitor for any change in condition.
[2019-10-06] MEDS: InsuLIN REG 1unit/0.01ml Soln (100units/ml) SC SCH ×2 (17:00→22:00)
[2019-10-06] MEDS ORDERED: VANCOMYCIN 1,500 MG in D5W 5% 250 ML IV ONE (17:00)
[2019-10-06 17:02] VITALS: BP 168/68
[2019-10-06] MEDS: SEVELAMER 800 MG TAB PO SCH (18:09)
[2019-10-06] MEDS: ACCU-CHEK COMFORT CURVE STRIP VI SCH ×2 (18:10→23:15)
--- NOTE | 2019-10-06 19:30 | NUR ---
Opening Shift Note Assumed care of patient, awake and alert x4. Patient denies pain or shortness of breath at this time. No signs/symptoms of distress noted at this time. Instructed on plan of care and to call for assistance as needed, patient verbalized understanding. Bed is locked in lowest position, side rails x 2 are up, call light is within reach, and bed alarm is on.
[2019-10-06 21:00] VITALS: BP 153/65
[2019-10-06] MEDS: hydrALAZINE HCL 25 MG TAB PO SCH (22:00)
[2019-10-06] MEDS ORDERED: MIRTAZAPINE 30 MG TAB PO SCH (22:00)
[2019-10-07 04:30] VITALS: BP 132/51
[2019-10-07] MEDS: ACCU-CHEK COMFORT CURVE STRIP VI SCH ×2 (06:13→11:30)
[2019-10-07] MEDS: InsuLIN REG 1unit/0.01ml Soln (100units/ml) SC SCH ×2 (06:13→11:30)
[2019-10-07] MEDS: SEVELAMER 800 MG TAB PO SCH ×2 (08:00→12:00)
[2019-10-07 08:29] VITALS: BP 157/60
[2019-10-07] MEDS ORDERED: cefTRIAXone 1GM/50ML D5W 50 ML IV SCH (09:00)
[2019-10-07] MEDS: hydrALAZINE HCL 25 MG TAB PO SCH (09:38)
[2019-10-07 09:39] LABS: Basophils # (auto) 0 uL; Basophils % (auto) 0.7 % (0.0-2.0); Eosinophils # (auto) 0.1 uL; Eosinophils % (auto) 1.8 % (0.0-7.0); Hematocrit 27.4 % (36.0-46.0); Hemoglobin 9.4 g/dL (12.2-16.2); Lymphocytes # (auto) 1.1 uL; Lymphocytes % (auto) 15.9 % (10.0-50.0); Mean Corpuscular Hgb Conc. 34.2 g/dL (32.0-36.0); Mean Corpuscular Volume 96.6 fL (80.0-100.0); Monocytes # (auto) 0.7 uL; Monocytes % (auto) 10.1 % (0.0-12.0); Neutrophils # (auto) 5.1 uL; Neutrophils % (auto) 71.5 % (37.0-80.0); Platelet Count (auto) 231 10^3/uL (140-450); Red Blood Cells 2.84 10^6/uL (4.0-5.20); White Blood Cell 7.2 10^3/uL (4.4-10.8)
[2019-10-07 09:57] LABS: BUN/Creatinine Ratio 7.6; Calcium 8.7 mg/dL (8.5-10.1); Potassium 3.9 mmol/L (3.5-5.1)
[2019-10-07] MEDS ORDERED: PANTOPRAZOLE 40 MG TAB PO SCH (10:00)
--- NOTE | 2019-10-07 11:18 | NUR ---
Placed page to Dr. Gillette regarding clearance to use [facility] for home IV antibiotic therapy per Dr. Adams and to ask when patient is to receive her next dialysis.
--- NOTE | 2019-10-07 12:08 | NUR ---
DOCTOR RUPERTO AT BEDSIDE. PATIENT TO HAVE DIALYSIS TOMORROW AT [facility]. HOME ON CIPRO 500MG DAILY FOR 6 WEEKS. VANCO 1GRAM IV TO BE GIVEN AFTER EACH DIALYSIS SESSION FOR 6 WEEKS. ORDERS FOR HOME HEALTH WOUND CARE FOR RIGHT GREAT TOE.
[2019-10-07 12:29] VITALS: BP 149/67
--- NOTE | 2019-10-07 17:45 | NUR ---
Discharge instructions given as ordered. Encourage to follow up with PCP as instructed. All questions and concerns addressed. Patient verbalized understanding. Medication reconciliation form completed and copy given to patient. IV removed with catheter intact, pressure dressing applied. Telemetry unit returned to ICU. Patient taken to vehicle via wheelchair with all personal belongings, accompanied by staff and family member. No distress noted at time of departure.
[2019-10-08] MEDS ORDERED: VANCOMYCIN 1GM/250ML 250 ML IV ONE (17:00)
== END 2019-10-07 17:45 | disposition home or self-care (01) | DRG 617 ==
LOC: SUR 11:14 → WEST WING 16:20 → TELE-WESTW 23:06
PROVIDERS: ADMIT Podiatrist Foot & Ankle Surgery; ATTEND Internal Medicine
PROC: 0Y6P0Z0 Detachment at Right 1st Toe, Complete, Open Approach (ICD-10-PCS; principal; 2019-10-06 12:25)
DX: E11.69 Type 2 diabetes mellitus with other specified complication (principal); I12.0 Hypertensive chronic kidney disease with stage 5 chronic kidney disease or end stage renal disease; M86.8X7 Other osteomyelitis, ankle and foot; E11.621 Type 2 diabetes mellitus with foot ulcer; E11.40 Type 2 diabetes mellitus with diabetic neuropathy, unspecified; E11.22 Type 2 diabetes mellitus with diabetic chronic kidney disease; F31.9 Bipolar disorder, unspecified; F12.90 Cannabis use, unspecified, uncomplicated; F41.9 Anxiety disorder, unspecified; D63.1 Anemia in chronic kidney disease; L97.509 Non-pressure chronic ulcer of other part of unspecified foot with unspecified severity; N18.6 End stage renal disease; Z82.0 Family history of epilepsy and other diseases of the nervous system; Z82.49 Family history of ischemic heart disease and other diseases of the circulatory system; Z89.429 Acquired absence of other toe(s), unspecified side; Z99.2 Dependence on renal dialysis; Z83.3 Family history of diabetes mellitus; Z88.5 Allergy status to narcotic agent; Z88.1 Allergy status to other antibiotic agents
CPT/HCPCS: 36415; 80048; 80053; 80202; 81001; 82962; 83036; 85025; 85610; 85730; 87070; 87075; 87077; 87186; 87205; G0378; J0690; J0696; J2250; J2704; J7060

== ENCOUNTER 2020-01-09 12:01 | Emergency (ER) | payer MEDICARE, MEDICAID ==
[~2020-01-09] VITALS: Ht 177.8 cm; Wt 95.3 kg
[2020-01-09] MEDS ORDERED: ONDANSETRON ODT 4 MG TAB PO ONE (12:30)
[2020-01-09] MEDS ORDERED: ACETAMINOPHEN 500 MG TAB PO ONE ×2 (12:34→12:45)
[2020-01-09 13:10] LABS: Basophils # (auto) 0 uL; Basophils % (auto) 0.6 % (0.0-2.0); Eosinophils # (auto) 0 uL; Eosinophils % (auto) 0.2 % (0.0-7.0); Hematocrit 32.6 % (36.0-46.0); Hemoglobin 11.2 g/dL (12.2-16.2); Lymphocytes # (auto) 0.5 uL; Lymphocytes % (auto) 6.9 % (10.0-50.0); Mean Corpuscular Hemoglobin 32.2 pg (28.0-32.0); Mean Corpuscular Hgb Conc. 34.4 g/dL (32.0-36.0); Mean Corpuscular Volume 93.7 fL (80.0-100.0); Monocytes # (auto) 0.9 uL; Monocytes % (auto) 12.8 % (0.0-12.0); Neutrophils # (auto) 5.4 uL; Neutrophils % (auto) 79.5 % (37.0-80.0); Platelet Count (auto) 198 10^3/uL (140-450); Red Blood Cells 3.48 10^6/uL (4.0-5.20); Red Cell Distribution Width 13.8 % (11.8-14.3); White Blood Cell 6.7 10^3/uL (4.4-10.8)
[2020-01-09] MEDS ORDERED: PROMETHAZINE HCL 25 MG/ML 1ML IV ONE (13:30)
[2020-01-09 13:31] LABS: Albumin 3.8 g/dL (3.4-5.0); Calcium 8.2 mg/dL (8.5-10.1); Potassium 3.8 mmol/L (3.5-5.1)
[2020-01-09 13:36] LABS: BUN/Creatinine Ratio 8.5; Bilirubin, Total 0.5 mg/dL (0.2-1.0); Total Protein 7.9 g/dL (6.4-8.2)
[2020-01-09] MEDS ORDERED: MORPHINE SULF INJ 2 MG/ML SYRINGE 1ML IV ONE (15:00)
[2020-01-09 15:17] LABS: Urine WBC None Seen /hpf (0 - 5)
[2020-01-09 15:53] LABS: Urine Bacteria NONE SEEN /hpf (None Seen); Urine Blood TRACE /uL (Negative); Urine Specific Gravity 1.013 (1.001-1.035)
[2020-01-09 17:23] VITALS: BP 149/52
== END 2020-01-09 17:01 | disposition home or self-care (01) ==
LOC: ER 12:01
DX: I13.2 Hypertensive heart and chronic kidney disease with heart failure and with stage 5 chronic kidney disease, or end stage renal disease (principal); E11.22 Type 2 diabetes mellitus with diabetic chronic kidney disease; N18.6 End stage renal disease; I50.9 Heart failure, unspecified; R11.2 Nausea with vomiting, unspecified; R10.84 Generalized abdominal pain; K21.9 Gastro-esophageal reflux disease without esophagitis
CPT/HCPCS: 36415; 74176; 80053; 81001; 82150; 83690; 85025; 93005; 96374; 96375; 99291; J2270; J2550; Q0162

== ENCOUNTER → 2020-08-09 | Day surgery (SDC) | payer MEDICARE, MEDICAID ==
[2020-08-03 12:56] LABS: Basophils # (auto) 0.1 10 ^3/uL (0-0.2); Eosinophils # (auto) 0.1 10 ^3/uL (0-0.8); Eosinophils % (auto) 1.3 % (0.0-7.0); Hematocrit 33.8 % (36.0-46.0); Hemoglobin 11.2 g/dL (12.2-16.2); Lymphocytes # (auto) 1.9 10 ^3/uL (0.4-5.4); Lymphocytes % (auto) 25.9 % (10.0-50.0); Mean Corpuscular Hemoglobin 32.2 pg (28.0-32.0); Mean Corpuscular Volume 97.5 fL (80.0-100.0); Monocytes # (auto) 0.7 10 ^3/uL (0-1.3); Neutrophils # (auto) 4.6 10 ^3/uL (1.6-8.6); Neutrophils % (auto) 62.8 % (37.0-80.0); Platelet Count (auto) 229 10^3/uL (140-450); Red Blood Cells 3.47 10^6/uL (4.0-5.20); Red Cell Distribution Width 14.1 % (11.8-14.3); White Blood Cell 7.4 10^3/uL (4.4-10.8)
[2020-08-03 13:03] LABS: Urine Bacteria NONE SEEN /hpf (None Seen); Urine Blood Negative /uL (Negative); Urine Hyaline Cast FEW /lpf (0 - 2); Urine Specific Gravity 1.014 (1.001-1.035); Urine WBC 14 /hpf (0 - 5)
[2020-08-03 13:06] LABS: Albumin 3.7 g/dL (3.4-5.0); Calcium 8.2 mg/dL (8.5-10.1); Potassium 4.3 mmol/L (3.5-5.1)
[2020-08-03 13:09] LABS: BUN/Creatinine Ratio 6.7; Bilirubin, Total 0.5 mg/dL (0.2-1.0); Total Protein 7.8 g/dL (6.4-8.2)
[2020-08-03 13:14] LABS: INR 1.06 (0.9-1.15); Partial Thromboplastin Time 32.4 sec (23.0-31.2)
[~2020-08-09] VITALS: Ht 177.8 cm; Wt 99.8 kg
[~2020-08-09] MED LIST changes: -ALPR0.25 PO; -AMOX500T86 PO; +APIX2.5T PO; +CLOP75TA28 PO; +DexAMETHasone SOD PHOS 10MG/1ML VIAL INJ ONE; +ESCI20TA PO; +FAMO-12 PO; +IPRIH INH; +LABETALOL HCL 5 MG/ML 4ML SYRINGE IV PRN; +LISI-275 PO; +MEPERIDINE HCL (25 MG/ML) 1ML VIAL ONE; +MIDAZOLAM HCL 1MG/1ML-2 ML VIAL IV PRN; +MIDAZOLAM HCL 1MG/1ML-2 ML VIAL ONE; +MORPHINE SULFATE 4 MG/ML SYR/VIAL IV PRN; +NEOMYCIN-BACITRACIN-POLYM 15GM TOP OINT TOP ONE; +ONDANSETRON HCL 4 MG/2 ML VIAL IV PRN; +PROPOFOL 10 MG/ML 20 ML IV ONE; +ROPIVACAINE 0.5% (5MG/ML) 20ML AMPULE IJ ONE; +ZIPR80CA8 PO; +ePHEDrine SULFATE 50 MG/ML AMP IV PRN; +fentaNYL CITRATE 100 MCG/2 ML VL IV PRN; +fentaNYL CITRATE 100 MCG/2 ML VL ONE; +levoFLOXacin 500MG 100 ML IV ONE
[2020-08-09 09:45] VITALS: BP 164/53
== END | disposition home or self-care (01) ==
LOC: SUR 06:09
PROVIDERS: ATTEND Podiatrist Foot & Ankle Surgery
DX: M20.41 Other hammer toe(s) (acquired), right foot (principal); M20.42 Other hammer toe(s) (acquired), left foot; I25.10 Atherosclerotic heart disease of native coronary artery without angina pectoris; I11.0 Hypertensive heart disease with heart failure; K21.9 Gastro-esophageal reflux disease without esophagitis; J45.909 Unspecified asthma, uncomplicated; D64.9 Anemia, unspecified; F41.9 Anxiety disorder, unspecified; E11.9 Type 2 diabetes mellitus without complications; F31.9 Bipolar disorder, unspecified; Z88.5 Allergy status to narcotic agent; Z88.1 Allergy status to other antibiotic agents; Z88.8 Allergy status to other drugs, medicaments and biological substances; Z79.899 Other long term (current) drug therapy; Z98.890 Other specified postprocedural states; Z90.710 Acquired absence of both cervix and uterus; Z87.891 Personal history of nicotine dependence; Z20.828 Contact with and (suspected) exposure to other viral communicable diseases
CPT/HCPCS: 28285; 36415; 80053; 81001; 82962; 85025; 85610; 85730; 88304; 88311; C1713; J1100; J1956; J2175; J2250; J2704; J2795; J3010; U0003

== ENCOUNTER 2021-04-03 12:27 | Inpatient (IN) | payer MEDICARE, MEDICAID ==
[~2021-04-03] VITALS: Ht 177.8 cm; Wt 95.0 kg
[~2021-04-03 12:27] MED LIST changes: -DexAMETHasone SOD PHOS 10MG/1ML VIAL INJ ONE; -LABETALOL HCL 5 MG/ML 4ML SYRINGE IV PRN; -MEPERIDINE HCL (25 MG/ML) 1ML VIAL ONE; -MIDAZOLAM HCL 1MG/1ML-2 ML VIAL IV PRN; -MIDAZOLAM HCL 1MG/1ML-2 ML VIAL ONE; -MORPHINE SULFATE 4 MG/ML SYR/VIAL IV PRN; -NEOMYCIN-BACITRACIN-POLYM 15GM TOP OINT TOP ONE; -ONDANSETRON HCL 4 MG/2 ML VIAL IV PRN; -PROPOFOL 10 MG/ML 20 ML IV ONE; -ROPIVACAINE 0.5% (5MG/ML) 20ML AMPULE IJ ONE; +ZIPR80CA37 PO; -ZIPR80CA8 PO; -ePHEDrine SULFATE 50 MG/ML AMP IV PRN; -fentaNYL CITRATE 100 MCG/2 ML VL IV PRN; -fentaNYL CITRATE 100 MCG/2 ML VL ONE; -levoFLOXacin 500MG 100 ML IV ONE
[2021-04-03 13:44] LABS: Basophils # (auto) 0.1 10 ^3/uL (0-0.2); Basophils % (auto) 0.9 % (0.0-2.0); Eosinophils # (auto) 0.1 10 ^3/uL (0-0.8); Eosinophils % (auto) 1.5 % (0.0-7.0); Hematocrit 32.2 % (36.0-46.0); Hemoglobin 10.9 g/dL (12.2-16.2); Lymphocytes # (auto) 1.8 10 ^3/uL (0.4-5.4); Lymphocytes % (auto) 25.1 % (10.0-50.0); Mean Corpuscular Hemoglobin 33.2 pg (28.0-32.0); Mean Corpuscular Hgb Conc. 33.8 g/dL (32.0-36.0); Mean Corpuscular Volume 98.1 fL (80.0-100.0); Monocytes # (auto) 0.5 10 ^3/uL (0-1.3); Neutrophils # (auto) 4.6 10 ^3/uL (1.6-8.6); Neutrophils % (auto) 65.5 % (37.0-80.0); Nucleated Red Blood Cells % 0.1 %; Platelet Count (auto) 241 10^3/uL (140-450); Red Blood Cells 3.29 10^6/uL (4.0-5.20); Red Cell Distribution Width 14.1 % (11.8-14.3); White Blood Cell 7.1 10^3/uL (4.4-10.8)
[2021-04-03 13:54] LABS: Partial Thromboplastin Time 28.2 sec (23.0-31.2)
[2021-04-03 14:06] LABS: Albumin 3.7 g/dL (3.4-5.0); BUN/Creatinine Ratio 5.4; Calcium 8.7 mg/dL (8.5-10.1); Potassium 4.1 mmol/L (3.5-5.1)
[2021-04-03 14:09] LABS: Bilirubin, Total 0.3 mg/dL (0.2-1.0); Total Protein 7.3 g/dL (6.4-8.2)
[2021-04-03] MEDS ORDERED: SODIUM CHLORIDE 0.9% 1,000 ML IV ONE (14:45)
[2021-04-03] MEDS ORDERED: PIPERACILLIN-TAZOB 3.375GM 100 ML IV ONE (14:45)
[2021-04-03] MEDS ORDERED: VANCOMYCIN PER PHARMACY 0 MG IV SCH (16:45)
[2021-04-03] MEDS ORDERED: LORazepam 0.5 MG TAB PO PRN (16:45)
[2021-04-03] MEDS ORDERED: NITROGLYCERIN 0.4 MG SL TAB SL PRN (16:45)
[2021-04-03] MEDS ORDERED: HYDROcodone-ACET 5/325MG TAB PO PRN (16:45)
[2021-04-03] MEDS ORDERED: levoFLOXacin 500MG 100 ML IV SCH (16:45)
[2021-04-03] MEDS ORDERED: MORPHINE SULF INJ 2 MG/ML SYRINGE 1ML IV PRN ×2 (16:45)
[2021-04-03] MEDS ORDERED: DEXTROSE (50%) 50ML SYRG IV PRN (16:45)
[2021-04-03] MEDS ORDERED: VANCOMYCIN 1GM/250ML 250 ML IV ONE (18:00)
[2021-04-03] MEDS: InsuLIN REG 1unit/0.01ml Soln (100units/ml) SC SCH (18:00)
[2021-04-03] MEDS: ACCU-CHEK COMFORT CURVE STRIP VI SCH (18:17)
[2021-04-03] MEDS: LABETALOL HCL 5 MG/ML 4ML SYRINGE IV PRN (19:43)
[2021-04-03] MEDS ORDERED: levoFLOXacin 500MG 100 ML IV ONE (20:00)
[2021-04-03 23:00] VITALS: BP 123/49
[2021-04-03] MEDS: metroNIDAZOLE 500MG/100ML 100 ML IV SCH (23:28)
[2021-04-03] MEDS: FAMOTIDINE 20 MG TAB PO SCH (23:28)
[2021-04-04] MEDS: ACCU-CHEK COMFORT CURVE STRIP VI SCH ×4 (00:03→18:16)
[2021-04-04] MEDS ORDERED: ESCI20TA PO (01:11)
[2021-04-04] MEDS ORDERED: CLON0.5T3 PO (01:11)
[2021-04-04 05:00] VITALS: BP 142/70
[2021-04-04] MEDS: InsuLIN REG 1unit/0.01ml Soln (100units/ml) SC SCH ×4 (05:33→18:00)
[2021-04-04] MEDS: metroNIDAZOLE 500MG/100ML 100 ML IV SCH ×3 (05:33→21:07)
[2021-04-04] MEDS: ONDANSETRON HCL 4 MG/2 ML VIAL IV PRN ×2 (05:49→21:19)
[2021-04-04 05:55] LABS: Eosinophils # (auto) 0.2 10 ^3/uL (0-0.8); Hematocrit 27.7 % (36.0-46.0); Lymphocytes # (auto) 1.9 10 ^3/uL (0.4-5.4); Mean Corpuscular Hemoglobin 35.1 pg (28.0-32.0); Monocytes # (auto) 0.6 10 ^3/uL (0-1.3)
[2021-04-04 05:58] LABS: Basophils # (auto) 0 10 ^3/uL (0-0.2); Basophils % (auto) 0.8 % (0.0-2.0); Eosinophils % (auto) 2.5 % (0.0-7.0); Hemoglobin 9.9 g/dL (12.2-16.2); Lymphocytes % (auto) 31.4 % (10.0-50.0); Mean Corpuscular Hgb Conc. 35.6 g/dL (32.0-36.0); Mean Corpuscular Volume 98.7 fL (80.0-100.0); Monocytes % (auto) 9.9 % (0.0-12.0); Neutrophils # (auto) 3.4 10 ^3/uL (1.6-8.6); Neutrophils % (auto) 55.4 % (37.0-80.0); Platelet Count (auto) 209 10^3/uL (140-450); White Blood Cell 6.1 10^3/uL (4.4-10.8)
[2021-04-04 06:54] LABS: BUN/Creatinine Ratio 6.5; Calcium 8.6 mg/dL (8.5-10.1)
[2021-04-04 07:54] LABS: Urine Bacteria NONE SEEN /hpf (None Seen); Urine Blood TRACE /uL (Negative); Urine Specific Gravity 1.012 (1.001-1.035); Urine WBC 24 /hpf (0 - 5)
[2021-04-04 08:00] VITALS: BP 131/54
[2021-04-04 09:00] VITALS: BP 131/54
[2021-04-04] MEDS ORDERED: levoFLOXacin 500MG 100 ML IV ONE (09:03)
[2021-04-04] MEDS ORDERED: ceFAZolin 1GM VL ONE (09:30)
[2021-04-04] MEDS ORDERED: cefTRIAXone SOD 1,000 MG VL ONE (09:37)
[2021-04-04] MEDS ORDERED: CLINDAMYCIN 600MG IV 0 ML IV ONE (09:44)
[2021-04-04] MEDS ORDERED: fentaNYL CITRATE 100 MCG/2 ML VL IV ONE (09:45)
[2021-04-04] MEDS ORDERED: MIDAZOLAM HCL 1MG/1ML-2 ML VIAL IV ONE (09:45)
[2021-04-04] MEDS ORDERED: ePHEDrine SULFATE 50 MG/ML AMP IV PRN (09:45)
[2021-04-04] MEDS ORDERED: ACCU-CHEK COMFORT CURVE STRIP VI ONE (09:45)
[2021-04-04] MEDS ORDERED: PROPOFOL 10 MG/ML 20 ML IV ONE (09:45)
[2021-04-04] MEDS ORDERED: LABETALOL HCL 5 MG/ML 4ML SYRINGE IV PRN (09:45)
[2021-04-04] MEDS ORDERED: ONDANSETRON HCL 4 MG/2 ML VIAL IV PRN (09:45)
[2021-04-04] MEDS ORDERED: fentaNYL CITRATE 100 MCG/2 ML VL IV PRN (09:45)
[2021-04-04] MEDS ORDERED: NEOMYCIN-BACITRACIN-POLYM 15GM TOP OINT TOP ONE (09:58)
[2021-04-04] MEDS ORDERED: ROPIVACAINE 0.5% (5MG/ML) 20ML AMPULE IJ ONE (09:58)
[2021-04-04] MEDS ORDERED: levoFLOXacin 250MG 50 ML IV SCH (10:00)
[2021-04-04] MEDS ORDERED: LISINOPRIL 10 MG TAB PO ONE (11:30)
[2021-04-04] MEDS ORDERED: clonazePAM 0.5 MG TAB PO PRN (11:30)
[2021-04-04] MEDS ORDERED: ASPirin 81 mg TAB PO ONE (11:30)
[2021-04-04] MEDS: LABETALOL HCL 5 MG/ML 4ML SYRINGE IV PRN ×2 (11:54→21:07)
[2021-04-04] MEDS ORDERED: VANCOMYCIN 500 MG in D5W 5% 100 ML IV ONE (16:00)
[2021-04-04 17:00] VITALS: BP 152/79
[2021-04-04] MEDS: SEVELAMER 800 MG TAB PO SCH ×2 (17:47→18:23)
[2021-04-04 22:00] VITALS: BP 153/76
[2021-04-05] MEDS: ACCU-CHEK COMFORT CURVE STRIP VI SCH ×3 (00:09→11:09)
[2021-04-05 05:00] VITALS: BP 140/68
[2021-04-05] MEDS: InsuLIN REG 1unit/0.01ml Soln (100units/ml) SC SCH ×3 (05:28→11:09)
[2021-04-05] MEDS: metroNIDAZOLE 500MG/100ML 100 ML IV SCH ×2 (05:44→12:54)
[2021-04-05 06:00] LABS: Basophils # (auto) 0 10 ^3/uL (0-0.2); Basophils % (auto) 0.8 % (0.0-2.0); Eosinophils # (auto) 0.2 10 ^3/uL (0-0.8); Hematocrit 26.3 % (36.0-46.0); Hemoglobin 9.3 g/dL (12.2-16.2); Lymphocytes # (auto) 1.3 10 ^3/uL (0.4-5.4); Lymphocytes % (auto) 23.8 % (10.0-50.0); Mean Corpuscular Hemoglobin 34.8 pg (28.0-32.0); Mean Corpuscular Hgb Conc. 35.2 g/dL (32.0-36.0); Mean Corpuscular Volume 98.9 fL (80.0-100.0); Monocytes # (auto) 0.7 10 ^3/uL (0-1.3); Monocytes % (auto) 12.2 % (0.0-12.0); Neutrophils # (auto) 3.3 10 ^3/uL (1.6-8.6); Neutrophils % (auto) 60.2 % (37.0-80.0); Platelet Count (auto) 189 10^3/uL (140-450); Red Blood Cells 2.66 10^6/uL (4.0-5.20); Red Cell Distribution Width 14.3 % (11.8-14.3); White Blood Cell 5.4 10^3/uL (4.4-10.8)
[2021-04-05 06:25] LABS: Potassium 4.5 mmol/L (3.5-5.1)
[2021-04-05 06:32] LABS: BUN/Creatinine Ratio 7.5; Calcium 8.6 mg/dL (8.5-10.1)
[2021-04-05] MEDS: SEVELAMER 800 MG TAB PO SCH ×2 (08:00→11:09)
[2021-04-05] MEDS: FAMOTIDINE 20 MG TAB PO SCH (08:43)
[2021-04-05 09:13] VITALS: BP 137/51
[2021-04-05] MEDS ORDERED: LISINOPRIL 10 MG TAB PO SCH (10:00)
[2021-04-05] MEDS ORDERED: CITALOPRAM HYDROBR 20 MG TAB PO SCH (10:00)
[2021-04-05 13:08] VITALS: BP 166/80
[2021-04-05] MEDS ORDERED: VANCOMYCIN 500 MG in D5W 5% 100 ML IV ONE (16:00)
== END 2021-04-05 15:45 | disposition home or self-care (01) | DRG 617 ==
LOC: ER 12:27 → TELE 16:43 → TELE-WESTW 22:35
PROVIDERS: ADMIT Nurse Practitioner Acute Care; ATTEND Internal Medicine
PROC: 0Y6T0Z0 Detachment at Right 3rd Toe, Complete, Open Approach (ICD-10-PCS; 2021-04-04)
PROC: 5A1D70Z Performance of Urinary Filtration, Intermittent, Less than 6 Hours Per Day (ICD-10-PCS; principal; 2021-04-05)
DX: E11.69 Type 2 diabetes mellitus with other specified complication (principal); E11.52 Type 2 diabetes mellitus with diabetic peripheral angiopathy with gangrene; I13.2 Hypertensive heart and chronic kidney disease with heart failure and with stage 5 chronic kidney disease, or end stage renal disease; M86.8X7 Other osteomyelitis, ankle and foot; N18.6 End stage renal disease; L03.031 Cellulitis of right toe; F41.9 Anxiety disorder, unspecified; F32.9 Major depressive disorder, single episode, unspecified; K21.9 Gastro-esophageal reflux disease without esophagitis; I50.9 Heart failure, unspecified; Z20.822 Contact with and (suspected) exposure to COVID-19; D64.9 Anemia, unspecified; E11.22 Type 2 diabetes mellitus with diabetic chronic kidney disease; E11.40 Type 2 diabetes mellitus with diabetic neuropathy, unspecified; E66.9 Obesity, unspecified; Z68.30 Body mass index [BMI] 30.0-30.9, adult; F12.90 Cannabis use, unspecified, uncomplicated; J45.909 Unspecified asthma, uncomplicated; L97.519 Non-pressure chronic ulcer of other part of right foot with unspecified severity; Z79.01 Long term (current) use of anticoagulants; Z79.02 Long term (current) use of antithrombotics/antiplatelets; Z88.5 Allergy status to narcotic agent; Z88.8 Allergy status to other drugs, medicaments and biological substances; Z82.0 Family history of epilepsy and other diseases of the nervous system; Z82.49 Family history of ischemic heart disease and other diseases of the circulatory system; Z83.3 Family history of diabetes mellitus; Z86.718 Personal history of other venous thrombosis and embolism; Z89.419 Acquired absence of unspecified great toe; Z90.710 Acquired absence of both cervix and uterus; Z99.2 Dependence on renal dialysis; Z90.49 Acquired absence of other specified parts of digestive tract
CPT/HCPCS: 36415; 71045; 73700; 80048; 80053; 80202; 81001; 82962; 83036; 83605; 85025; 85610; 85730; 86850; 86900; 86901; 87040; 87081; 87426; 93005; 93925; 96361; 96365; 96367; 96375; G0378; J0690; J0696; J1956; J2250; J2405; J2543; J2704; J3490; J7060

== ENCOUNTER 2021-05-23 13:10 | Emergency (ER) | payer MEDICARE, MEDICAID ==
[~2021-05-23] VITALS: Ht 177.8 cm; Wt 93.0 kg
[~2021-05-23 13:10] MED LIST changes: +CLON0.5T3 PO; -CLOP75TA28 PO; -FAMO-12 PO; -LEVO250T69 PO
[2021-05-23] MEDS ORDERED: SODIUM CHLORIDE 0.9% 1,000 ML IV ONE (15:30)
[2021-05-23] MEDS ORDERED: SODIUM CHLORIDE 0.9% 500 ML IV ONE (15:30)
[2021-05-23 15:40] LABS: Eosinophils # (auto) 0.1 10 ^3/uL (0-0.8); Lymphocytes # (auto) 1.8 10 ^3/uL (0.4-5.4); Monocytes # (auto) 0.6 10 ^3/uL (0-1.3); Neutrophils # (auto) 4.5 10 ^3/uL (1.6-8.6)
[2021-05-23 15:42] LABS: Basophils # (auto) 0 10 ^3/uL (0-0.2); Basophils % (auto) 0.5 % (0.0-2.0); Eosinophils % (auto) 1.9 % (0.0-7.0); Hematocrit 30.1 % (36.0-46.0); Hemoglobin 10.8 g/dL (12.2-16.2); Lymphocytes % (auto) 25.7 % (10.0-50.0); Mean Corpuscular Hemoglobin 34.4 pg (28.0-32.0); Mean Corpuscular Volume 95.4 fL (80.0-100.0); Monocytes % (auto) 8.9 % (0.0-12.0); Platelet Count (auto) 182 10^3/uL (140-450); Red Blood Cells 3.15 10^6/uL (4.0-5.20); White Blood Cell 7.2 10^3/uL (4.4-10.8)
[2021-05-23 15:54] LABS: Albumin 3.6 g/dL (3.4-5.0); Calcium 8.3 mg/dL (8.5-10.1); Magnesium 2.3 mg/dL (1.6-2.6); Potassium 3.2 mmol/L (3.5-5.1); Uric Acid 1.8 mg/dL (2.6-6.0)
[2021-05-23 15:57] LABS: BUN/Creatinine Ratio 6.1; Bilirubin, Total 0.3 mg/dL (0.2-1.0); Total Protein 6.6 g/dL (6.4-8.2)
[2021-05-23] MEDS ORDERED: POTASSIUM EFFERVESENT TAB 25 MEQ PO ONE (17:30)
[2021-05-23 19:12] VITALS: BP 126/51
[2021-05-23 19:15] LABS: Urine Bacteria NONE SEEN /hpf (None Seen); Urine Blood TRACE /uL (Negative); Urine Hyaline Cast MOD /lpf (0 - 2); Urine Mucus FEW (None Seen); Urine Specific Gravity 1.017 (1.001-1.035); Urine WBC 85 /hpf (0 - 5)
== END 2021-05-23 19:30 | disposition home or self-care (01) ==
LOC: ER 13:10 → EDUNIT# 13:10 → EDBD 13:10 → ER 19:30
DX: M17.11 Unilateral primary osteoarthritis, right knee (principal); M71.21 Synovial cyst of popliteal space [Baker], right knee; I13.2 Hypertensive heart and chronic kidney disease with heart failure and with stage 5 chronic kidney disease, or end stage renal disease; E11.22 Type 2 diabetes mellitus with diabetic chronic kidney disease; N18.6 End stage renal disease; I50.9 Heart failure, unspecified; D63.1 Anemia in chronic kidney disease; E87.6 Hypokalemia; M25.461 Effusion, right knee; F41.9 Anxiety disorder, unspecified; F32.9 Major depressive disorder, single episode, unspecified; K21.9 Gastro-esophageal reflux disease without esophagitis; Z99.2 Dependence on renal dialysis; Z86.718 Personal history of other venous thrombosis and embolism; Z79.899 Other long term (current) drug therapy; Z88.1 Allergy status to other antibiotic agents; Z88.5 Allergy status to narcotic agent; Z89.431 Acquired absence of right foot
CPT/HCPCS: 36415; 73700; 80053; 81001; 83735; 84550; 85025; 85049; 93005

== ENCOUNTER 2022-05-31 17:37 | Emergency (ER) | payer MEDICARE, MEDICAID ==
[~2022-05-31] VITALS: Ht 175.3 cm; Wt 96.2 kg
[2022-05-31] MEDS ORDERED: ONDANSETRON HCL 4 MG/2 ML VIAL ONE (18:57)
[2022-05-31] MEDS ORDERED: ONDANSETRON HCL 4 MG/2 ML VIAL IV ONE (19:00)
[2022-05-31 19:01] VITALS: BP 131/61
[2022-05-31] MEDS ORDERED: METOCLOPRAMIDE HCL 10 MG TAB PO ONE (19:30)
[2022-05-31 19:32] LABS: Basophils # (auto) 0.1 10 ^3/uL (0-0.2); Basophils % (auto) 0.7 % (0.0-2.0); Eosinophils # (auto) 0.1 10 ^3/uL (0-0.8); Eosinophils % (auto) 1.1 % (0.0-7.0); Hematocrit 32.3 % (36.0-46.0); Hemoglobin 10.9 g/dL (12.2-16.2); Lymphocytes # (auto) 1.2 10 ^3/uL (0.4-5.4); Lymphocytes % (auto) 16.4 % (10.0-50.0); Mean Corpuscular Hemoglobin 32.5 pg (28.0-32.0); Mean Corpuscular Hgb Conc. 33.8 g/dL (32.0-36.0); Mean Corpuscular Volume 96.3 fL (80.0-100.0); Monocytes # (auto) 0.6 10 ^3/uL (0-1.3); Neutrophils # (auto) 5.3 10 ^3/uL (1.6-8.6); Neutrophils % (auto) 73.8 % (37.0-80.0); Red Blood Cells 3.36 10^6/uL (4.0-5.20); Red Cell Distribution Width 14.6 % (11.8-14.3); White Blood Cell 7.2 10^3/uL (4.4-10.8)
[2022-05-31 19:50] LABS: Albumin 3.6 g/dL (3.4-5.0); BUN/Creatinine Ratio 11.2; Calcium 8.1 mg/dL (8.5-10.1); Potassium 3.8 mmol/L (3.5-5.1)
[2022-05-31 19:53] LABS: Bilirubin, Total 0.3 mg/dL (0.2-1.0)
== END 2022-05-31 23:00 | disposition home or self-care (01) ==
LOC: ER 17:37 → EDBD 17:37 → ER 23:00
DX: T82.590A Other mechanical complication of surgically created arteriovenous fistula, initial encounter (principal); I13.2 Hypertensive heart and chronic kidney disease with heart failure and with stage 5 chronic kidney disease, or end stage renal disease; E11.22 Type 2 diabetes mellitus with diabetic chronic kidney disease; N18.6 End stage renal disease; I50.9 Heart failure, unspecified; K21.9 Gastro-esophageal reflux disease without esophagitis; Z99.2 Dependence on renal dialysis; Z90.49 Acquired absence of other specified parts of digestive tract; Z90.710 Acquired absence of both cervix and uterus; Z79.899 Other long term (current) drug therapy; Z88.1 Allergy status to other antibiotic agents; Z88.8 Allergy status to other drugs, medicaments and biological substances; Z88.5 Allergy status to narcotic agent
CPT/HCPCS: 36415; 80053; 85025; J2405

== ENCOUNTER 2023-04-16 06:59 | Day surgery (SDC) | payer MEDICARE, MEDICAID ==
[2023-04-15 13:35] LABS: Basophils # (auto) 0 10 ^3/uL (0-0.2); Basophils % (auto) 0.4 % (0.0-2.0); Eosinophils # (auto) 0 10 ^3/uL (0-0.8); Eosinophils % (auto) 0.4 % (0.0-7.0); Hematocrit 27.9 % (36.0-46.0); Hemoglobin 9.6 g/dL (12.2-16.2); Lymphocytes # (auto) 2.2 10 ^3/uL (0.4-5.4); Lymphocytes % (auto) 21.5 % (10.0-50.0); Mean Corpuscular Hemoglobin 33.7 pg (28.0-32.0); Mean Corpuscular Hgb Conc. 34.3 g/dL (32.0-36.0); Mean Corpuscular Volume 98.3 fL (80.0-100.0); Monocytes % (auto) 9.9 % (0.0-12.0); Neutrophils % (auto) 67.8 % (37.0-80.0); Nucleated Red Blood Cells % 0.2 %; Red Blood Cells 2.84 10^6/uL (4.0-5.20); Red Cell Distribution Width 14.2 % (11.8-14.3); White Blood Cell 10.3 10^3/uL (4.4-10.8)
[2023-04-15 13:36] LABS: INR 1.04 (0.9-1.15); Partial Thromboplastin Time 30.9 sec (24.6-33.4)
[2023-04-15 14:07] LABS: Albumin 2.7 g/dL (3.4-5.0); Calcium 8.5 mg/dL (8.5-10.1)
[2023-04-15 14:13] LABS: BUN/Creatinine Ratio 5.3 (10.0-20.0); Bilirubin, Total 0.6 mg/dL (0.2-1.0); Total Protein 7.1 g/dL (6.4-8.2)
[2023-04-15 15:09] LABS: Potassium 2.8 mmol/L (3.5-5.1)
[~2023-04-16] VITALS: Ht 177.8 cm; Wt 93.0 kg
[~2023-04-16 06:59] MED LIST changes: -APIX2.5T PO; +CALC0.5C PO; +FERR1TAB31 PO; -IPRIH INH
[2023-04-16] MEDS ORDERED: CIPROFLOXACIN 400MG/200ML 200 ML IV ONE (07:20)
[2023-04-16] MEDS ORDERED: ONDANSETRON HCL 4 MG/2 ML VIAL ONE (07:49)
[2023-04-16] MEDS ORDERED: fentaNYL CITRATE 100 MCG/2 ML VL ONE (07:49)
[2023-04-16] MEDS ORDERED: PROPOFOL 10 MG/ML 20 ML IV ONE (07:49)
[2023-04-16] MEDS ORDERED: MIDAZOLAM HCL 2MG/2ML 2ml VIAL (1mg/ml) ONE (07:49)
[2023-04-16] MEDS ORDERED: SODIUM CHLORIDE LOCK 10 ML ONE (07:49)
[2023-04-16] MEDS ORDERED: MORPHINE SULFATE INJ 2 MG/ml SYRG IV PRN (08:30)
[2023-04-16] MEDS ORDERED: POTASSIUM CHL 20MEQ/100ML 100 ML IV ONE (08:30)
[2023-04-16] MEDS ORDERED: HYDROmorphone HCL 2 MG/ML VL/or syr IV PRN ×2 (08:30)
[2023-04-16] MEDS ORDERED: ACCU-CHEK COMFORT CURVE STRIP VI ONE (08:30)
[2023-04-16] MEDS ORDERED: METOCLOPRAMIDE HCL 5MG/ml INJ 2ml VIAL IV PRN (08:30)
[2023-04-16] MEDS ORDERED: ROPIVACAINE 0.5% (5MG/ML) 20ML AMPULE IJ ONE (08:45)
[2023-04-16 09:51] VITALS: BP 137/57
== END 2023-04-16 10:04 | disposition home or self-care (01) ==
LOC: SUR 06:59
PROVIDERS: ATTEND Podiatrist Foot & Ankle Surgery
DX: E11.69 Type 2 diabetes mellitus with other specified complication (principal); M86.8X7 Other osteomyelitis, ankle and foot; M24.575 Contracture, left foot; L97.529 Non-pressure chronic ulcer of other part of left foot with unspecified severity
CPT/HCPCS: 28820; 36415; 80053; 82962; 85025; 85610; 85730; 87070; 87075; 87077; 87186; 87205; 88305; 88311; J0744; J2250; J2405; J2704; J2795; J3010; J3480

== ENCOUNTER 2023-04-29 12:27 | Inpatient (IN) | payer MEDICARE, MEDICAID ==
[~2023-04-29] VITALS: Ht 152.4 cm; Wt 96.1 kg
[2023-04-29 13:14] LABS: Basophils # (auto) 0 10 ^3/uL (0-0.2); Basophils % (auto) 0.1 % (0.0-2.0); Eosinophils # (auto) 0 10 ^3/uL (0-0.8); Eosinophils % (auto) 0.1 % (0.0-7.0); Hematocrit 29.4 % (36.0-46.0); Hemoglobin 9.9 g/dL (12.2-16.2); Lymphocytes # (auto) 0.8 10 ^3/uL (0.4-5.4); Lymphocytes % (auto) 4.3 % (10.0-50.0); Mean Corpuscular Hemoglobin 33.8 pg (28.0-32.0); Mean Corpuscular Hgb Conc. 33.6 g/dL (32.0-36.0); Mean Corpuscular Volume 100.6 fL (80.0-100.0); Monocytes # (auto) 1.7 10 ^3/uL (0-1.3); Neutrophils # (auto) 16.8 10 ^3/uL (1.6-8.6); Neutrophils % (auto) 86.5 % (37.0-80.0); Nucleated Red Blood Cells % 0.1 %; Red Blood Cells 2.93 10^6/uL (4.0-5.20); Red Cell Distribution Width 14.9 % (11.8-14.3); White Blood Cell 19.4 10^3/uL (4.4-10.8)
[2023-04-29 13:37] LABS: Albumin 1.9 g/dL (3.4-5.0); Anion Gap 9 (5-15); Blood Urea Nitrogen 39 mg/dL (7-18); Calcium 7.6 mg/dL (8.5-10.1); Carbon Dioxide 25 mmol/L (21-32); Chloride 95 mmol/L (98-107); Glucose 215 mg/dL (74-106); Magnesium 1.6 mg/dL (1.6-2.6); Potassium 3.1 mmol/L (3.5-5.1); Sodium 129 mmol/L (136-145)
[2023-04-29 13:44] LABS: Alanine Aminotransferase < 6 U/L (13-56); Alkaline Phosphatase 101 U/L (45-117); Aspartate Aminotransferase 8 U/L (15-37); Bilirubin, Total 0.3 mg/dL (0.2-1.0); GFR African American 8 mL/min; GFR Non-African American 7 mL/min; Total Protein 5.5 g/dL (6.4-8.2)
[2023-04-29] MEDS ORDERED: ACETAMINOPHEN 325 MG TAB PO ONE (15:45)
[2023-04-29] MEDS ORDERED: DOCUSATE SOD 100 MG CAP PO PRN (18:15)
[2023-04-29] MEDS ORDERED: VANCOMYCIN PER PHARMACY 0 MG IV SCH (18:15)
[2023-04-29] MEDS ORDERED: MORPHINE SULFATE INJ 2 MG/ml SYRG IV PRN ×2 (18:15)
[2023-04-29] MEDS ORDERED: hydrALAZINE HCL 20 MG/ML VL IV PRN (18:15)
[2023-04-29] MEDS ORDERED: DEXTROSE (50%) 50ML SYRG IV PRN (18:15)
[2023-04-29] MEDS ORDERED: NITROGLYCERIN 0.4 MG SL TAB SL PRN (18:15)
[2023-04-29] MEDS ORDERED: VANCOMYCIN 1GM/250ML 250 ML IV ONE ×2 (18:45→21:30)
[2023-04-29] MEDS: ZIPRASIDONE HYDROCHLORIDE 80 MG PO SCH (22:00)
[2023-04-29] MEDS: InsuLIN REG 1unit/0.01ml Soln (100units/ml) SC SCH (22:00)
[2023-04-29] MEDS: ACCU-CHEK COMFORT CURVE STRIP VI SCH (22:00)
[2023-04-30] MEDS: clonazePAM 0.5 MG TAB PO SCH ×2 (00:20→22:00)
[2023-04-30] MEDS: ACETAMINOPHEN 325 MG TAB PO PRN (00:20)
[2023-04-30] MEDS: ACCU-CHEK COMFORT CURVE STRIP VI SCH ×4 (07:00→22:00)
[2023-04-30 07:19] LABS: Basophils # (auto) 0 10 ^3/uL (0-0.2); Eosinophils # (auto) 0 10 ^3/uL (0-0.8)
[2023-04-30 07:22] LABS: Basophils % (auto) 0.1 % (0.0-2.0); Eosinophils % (auto) 0.1 % (0.0-7.0); Hematocrit 29.8 % (36.0-46.0); Hemoglobin 10.2 g/dL (12.2-16.2); Lymphocytes # (auto) 1.2 10 ^3/uL (0.4-5.4); Lymphocytes % (auto) 5.6 % (10.0-50.0); Mean Corpuscular Hemoglobin 34.2 pg (28.0-32.0); Mean Corpuscular Hgb Conc. 34.2 g/dL (32.0-36.0); Monocytes % (auto) 9.8 % (0.0-12.0); Neutrophils # (auto) 17.6 10 ^3/uL (1.6-8.6); Neutrophils % (auto) 84.4 % (37.0-80.0); Red Blood Cells 2.98 10^6/uL (4.0-5.20); Red Cell Distribution Width 14.9 % (11.8-14.3); White Blood Cell 20.8 10^3/uL (4.4-10.8)
[2023-04-30 07:25] LABS: Chloride 92 mmol/L (98-107); Potassium 3.2 mmol/L (3.5-5.1); Sodium 127 mmol/L (136-145)
[2023-04-30 07:33] LABS: Alanine Aminotransferase < 6 U/L (13-56); Alkaline Phosphatase 102 U/L (45-117); Anion Gap 13 (5-15); Aspartate Aminotransferase 8 U/L (15-37); BUN/Creatinine Ratio 6.1 (10.0-20.0); Bilirubin, Total 0.4 mg/dL (0.2-1.0); Blood Urea Nitrogen 47 mg/dL (7-18); Calcium 8.3 mg/dL (8.5-10.1); Carbon Dioxide 22 mmol/L (21-32); GFR African American 7 mL/min; GFR Non-African American 6 mL/min; Glucose 214 mg/dL (74-106)
[2023-04-30] MEDS: InsuLIN REG 1unit/0.01ml Soln (100units/ml) SC SCH ×4 (11:58→22:37)
[2023-04-30] MEDS ORDERED: BUMETANIDE 2.5mg/10ml (0.25 mg/ml) INJ IV ONE (12:30)
[2023-04-30] MEDS ORDERED: CEFEPIME 2 GM in SODIUM CHL 0.9% 50 ML IV ONE (12:30)
[2023-04-30] MEDS ORDERED: FLUCONAZOLE 100 MG TAB PO ONE (12:30)
[2023-04-30] MEDS: LISINOPRIL 5 MG TAB PO SCH (12:30)
[2023-04-30] MEDS: HEPARIN SODIUM (PORCINE) 5000 UNITS/ML 1ML VIAL SC SCH ×2 (13:32→22:00)
[2023-04-30] MEDS: Escitalopram Oxalate 20MG PO SCH (13:32)
[2023-04-30] MEDS: FAMOTIDINE 20 MG TAB PO SCH (13:40)
[2023-04-30] MEDS ORDERED: VANCOMYCIN 1GM/250ML 250 ML IV ONE (13:45)
[2023-04-30 19:02] LABS: Urine Bacteria NONE SEEN /hpf (None Seen); Urine Blood TRACE /uL (Negative); Urine Mucus FEW (None Seen); Urine Specific Gravity 1.018 (1.001-1.035); Urine WBC 289 /hpf (0 - 5)
[2023-04-30] MEDS: BUMETANIDE 2.5mg/10ml (0.25 mg/ml) INJ IV SCH ×2 (19:40→20:30)
[2023-04-30 22:00] VITALS: BP 126/48
[2023-04-30] MEDS: ZIPRASIDONE HYDROCHLORIDE 80 MG PO SCH (22:38)
[2023-04-30 22:56] VITALS: BP 126/48
[2023-05-01 05:00] VITALS: BP 104/46
[2023-05-01] MEDS: BUMETANIDE 2.5mg/10ml (0.25 mg/ml) INJ IV SCH ×2 (06:00→17:34)
[2023-05-01] MEDS: ACCU-CHEK COMFORT CURVE STRIP VI SCH ×4 (06:55→21:28)
[2023-05-01] MEDS: InsuLIN REG 1unit/0.01ml Soln (100units/ml) SC SCH ×4 (06:55→21:32)
[2023-05-01] MEDS ORDERED: SODIUM CHL 0.9% 1000 ML BAG XX ONE (07:00)
[2023-05-01 08:00] VITALS: BP 109/54
[2023-05-01 08:53] VITALS: BP 109/54
[2023-05-01] MEDS: FLUCONAZOLE 100 MG TAB PO SCH (09:10)
[2023-05-01] MEDS: HEPARIN SODIUM (PORCINE) 5000 UNITS/ML 1ML VIAL SC SCH ×2 (09:17→21:36)
[2023-05-01] MEDS: ACETAMINOPHEN 325 MG TAB PO PRN ×3 (09:18→21:55)
[2023-05-01] MEDS: Escitalopram Oxalate 20MG PO SCH (09:19)
[2023-05-01] MEDS: LISINOPRIL 5 MG TAB PO SCH (09:19)
[2023-05-01 09:57] LABS: Hepatitis C Antibody Negative (Negative)
[2023-05-01 09:58] LABS: Hepatitis A Ab IgM Negative; Hepatitis B Core IgM Negative
[2023-05-01] MEDS ORDERED: CEFEPIME 1 GM in SODIUM CHL 0.9% 50 ML IV SCH (10:00)
[2023-05-01] MEDS ORDERED: ALBUMIN 25% 100 ML IV ONE (12:00)
[2023-05-01 13:06] VITALS: BP 128/55
[2023-05-01] MEDS ORDERED: VANCOMYCIN 1GM/250ML 250 ML IV ONE ×2 (16:00→20:00)
[2023-05-01] MEDS ORDERED: EPOETIN ALFA-EPBX 4,000 UNIT/ML VIAL SC ONE (21:00)
[2023-05-01] MEDS: clonazePAM 0.5 MG TAB PO SCH (21:35)
[2023-05-01] MEDS: ZIPRASIDONE HYDROCHLORIDE 80 MG PO SCH (21:48)
[2023-05-01 22:00] VITALS: BP 104/52
[2023-05-02 05:00] VITALS: BP 106/50
[2023-05-02 05:41] LABS: BUN/Creatinine Ratio 5.9 (10.0-20.0); Calcium 8.6 mg/dL (8.5-10.1); Potassium 3.1 mmol/L (3.5-5.1)
[2023-05-02 05:43] LABS: Eosinophils # (auto) 0.1 10 ^3/uL (0-0.8); Nucleated Red Blood Cells % 0.1 %; Red Cell Distribution Width 14.7 % (11.8-14.3)
[2023-05-02 06:00] LABS: Basophils # (auto) 0.1 10 ^3/uL (0-0.2); Basophils % (auto) 0.9 % (0.0-2.0); Eosinophils % (auto) 0.7 % (0.0-7.0); Lymphocytes % (auto) 7.9 % (10.0-50.0); Mean Corpuscular Hemoglobin 34.3 pg (28.0-32.0); Mean Corpuscular Hgb Conc. 34.7 g/dL (32.0-36.0); Mean Corpuscular Volume 98.8 fL (80.0-100.0); Monocytes # (auto) 1.3 10 ^3/uL (0-1.3); Monocytes % (auto) 10.1 % (0.0-12.0); Neutrophils # (auto) 10.1 10 ^3/uL (1.6-8.6); Neutrophils % (auto) 80.4 % (37.0-80.0); Red Blood Cells 2.63 10^6/uL (4.0-5.20); White Blood Cell 12.6 10^3/uL (4.4-10.8)
[2023-05-02] MEDS: BUMETANIDE 2.5mg/10ml (0.25 mg/ml) INJ IV SCH ×2 (06:00→18:00)
[2023-05-02] MEDS: InsuLIN REG 1unit/0.01ml Soln (100units/ml) SC SCH ×4 (06:20→23:08)
[2023-05-02] MEDS: ACCU-CHEK COMFORT CURVE STRIP VI SCH ×4 (06:22→22:00)
[2023-05-02] MEDS: ACETAMINOPHEN 325 MG TAB PO PRN (06:27)
[2023-05-02 09:00] VITALS: BP 105/49
[2023-05-02] MEDS: LISINOPRIL 5 MG TAB PO SCH (10:00)
[2023-05-02 10:19] VITALS: BP 103/50
[2023-05-02] MEDS: HYDROcodone-ACET 5/325MG TAB PO PRN ×2 (10:31→20:39)
[2023-05-02] MEDS: FAMOTIDINE 20 MG TAB PO SCH (10:32)
[2023-05-02] MEDS: FLUCONAZOLE 100 MG TAB PO SCH (10:32)
[2023-05-02] MEDS: HEPARIN SODIUM (PORCINE) 5000 UNITS/ML 1ML VIAL SC SCH ×2 (10:39→23:11)
[2023-05-02] MEDS: Escitalopram Oxalate 20MG PO SCH (10:58)
[2023-05-02 13:00] VITALS: BP 111/55
[2023-05-02] MEDS: ONDANSETRON HCL 4 MG/2 ML VIAL IV PRN ×2 (14:44→20:47)
[2023-05-02 17:10] VITALS: BP 106/50
[2023-05-02] MEDS: CEFEPIME 1 GM in SODIUM CHL 0.9% 50 ML IV SCH (17:57)
[2023-05-02] MEDS ORDERED: LACTULOSE 20Gm/30ML SOLN PO ONE (20:00)
[2023-05-02 22:00] VITALS: BP 115/53
[2023-05-02] MEDS: ZIPRASIDONE HYDROCHLORIDE PO SCH (23:11)
[2023-05-02] MEDS: clonazePAM 0.5 MG TAB PO SCH (23:11)
[2023-05-03 05:00] VITALS: BP 102/48
[2023-05-03] MEDS: BUMETANIDE 2.5mg/10ml (0.25 mg/ml) INJ IV SCH ×2 (06:00→18:49)
[2023-05-03] MEDS: ACCU-CHEK COMFORT CURVE STRIP VI SCH ×4 (06:38→21:47)
[2023-05-03] MEDS: InsuLIN REG 1unit/0.01ml Soln (100units/ml) SC SCH ×4 (06:40→21:45)
[2023-05-03] MEDS: ONDANSETRON HCL 4 MG/2 ML VIAL IV PRN ×3 (06:41→21:48)
[2023-05-03 09:00] VITALS: BP 100/48
[2023-05-03] MEDS: LISINOPRIL 5 MG TAB PO SCH (10:00)
[2023-05-03] MEDS: Escitalopram Oxalate 20MG PO SCH (10:11)
[2023-05-03] MEDS: LACTULOSE 20Gm/30ML SOLN PO SCH (10:12)
[2023-05-03] MEDS: FLUCONAZOLE 100 MG TAB PO SCH (10:12)
[2023-05-03] MEDS: HEPARIN SODIUM (PORCINE) 5000 UNITS/ML 1ML VIAL SC SCH ×2 (10:19→21:44)
[2023-05-03 13:00] VITALS: BP 115/57
[2023-05-03 17:00] VITALS: BP 117/57
[2023-05-03] MEDS: CEFEPIME 1 GM in SODIUM CHL 0.9% 50 ML IV SCH (18:49)
[2023-05-03] MEDS ORDERED: VANCOMYCIN 1GM/250ML 250 ML IV ONE (20:00)
[2023-05-03] MEDS: HYDROcodone-ACET 5/325MG TAB PO PRN (21:43)
[2023-05-03] MEDS: clonazePAM 0.5 MG TAB PO SCH (21:45)
[2023-05-03] MEDS: DOCUSATE SOD 100 MG CAP PO SCH (21:46)
[2023-05-03] MEDS: ZIPRASIDONE HYDROCHLORIDE PO SCH (21:47)
[2023-05-03 21:57] VITALS: BP 120/59
[2023-05-04 05:23] VITALS: BP 119/48
[2023-05-04] MEDS: ONDANSETRON HCL 4 MG/2 ML VIAL IV PRN (05:24)
[2023-05-04] MEDS: HYDROcodone-ACET 5/325MG TAB PO PRN ×2 (05:24→20:24)
[2023-05-04] MEDS: BUMETANIDE 2.5mg/10ml (0.25 mg/ml) INJ IV SCH ×2 (05:25→17:58)
[2023-05-04] MEDS: SUCRALFATE 1 GM/10 ML ORAL SUSP PO SCH ×4 (06:05→22:30)
[2023-05-04] MEDS: InsuLIN REG 1unit/0.01ml Soln (100units/ml) SC SCH ×4 (06:08→22:47)
[2023-05-04] MEDS: ACCU-CHEK COMFORT CURVE STRIP VI SCH ×4 (06:41→22:00)
[2023-05-04 07:29] LABS: BUN/Creatinine Ratio 6.2 (10.0-20.0); Calcium 8.6 mg/dL (8.5-10.1); Potassium 3.1 mmol/L (3.5-5.1)
[2023-05-04 09:00] VITALS: BP 124/52
[2023-05-04] MEDS: PANTOPRAZOLE 40 MG/10 ML VIAL INJ IV SCH ×2 (09:26→22:30)
[2023-05-04] MEDS: Escitalopram Oxalate 20MG PO SCH (09:26)
[2023-05-04] MEDS: DOCUSATE SOD 100 MG CAP PO SCH ×2 (09:27→22:29)
[2023-05-04] MEDS: FLUCONAZOLE 100 MG TAB PO SCH (09:27)
[2023-05-04] MEDS: FAMOTIDINE 20 MG TAB PO SCH (09:27)
[2023-05-04] MEDS: LACTULOSE 20Gm/30ML SOLN PO SCH (09:27)
[2023-05-04] MEDS: LISINOPRIL 5 MG TAB PO SCH (09:37)
[2023-05-04] MEDS: HEPARIN SODIUM (PORCINE) 5000 UNITS/ML 1ML VIAL SC SCH ×2 (09:37→22:44)
[2023-05-04 13:00] VITALS: BP 105/54
[2023-05-04] MEDS ORDERED: POTASSIUM EFFERVESENT TAB 25 MEQ PO ONE (14:30)
[2023-05-04 17:00] VITALS: BP 113/58
[2023-05-04] MEDS: CEFEPIME 1 GM in SODIUM CHL 0.9% 50 ML IV SCH (17:58)
[2023-05-04] MEDS ORDERED: VANCOMYCIN 1GM/250ML 250 ML IV ONE (20:00)
[2023-05-04] MEDS: ZIPRASIDONE HYDROCHLORIDE PO SCH (22:00)
[2023-05-04 22:03] VITALS: BP 113/59
[2023-05-04] MEDS: clonazePAM 0.5 MG TAB PO SCH (22:29)
[2023-05-05 05:50] VITALS: BP 125/59
[2023-05-05] MEDS: SUCRALFATE 1 GM/10 ML ORAL SUSP PO SCH ×4 (06:37→21:33)
[2023-05-05] MEDS: BUMETANIDE 2.5mg/10ml (0.25 mg/ml) INJ IV SCH ×2 (06:37→12:35)
[2023-05-05] MEDS: ACCU-CHEK COMFORT CURVE STRIP VI SCH ×4 (06:44→21:42)
[2023-05-05] MEDS: InsuLIN REG 1unit/0.01ml Soln (100units/ml) SC SCH ×4 (06:58→21:42)
[2023-05-05 09:00] VITALS: BP 118/50
[2023-05-05 09:48] LABS: Hematocrit 25.6 % (36.0-46.0); Hemoglobin 8.6 g/dL (12.2-16.2); Mean Corpuscular Hemoglobin 33.9 pg (28.0-32.0); Mean Corpuscular Hgb Conc. 33.5 g/dL (32.0-36.0); Mean Corpuscular Volume 101.3 fL (80.0-100.0); Red Blood Cells 2.53 10^6/uL (4.0-5.20); White Blood Cell 17.4 10^3/uL (4.4-10.8)
[2023-05-05 09:55] LABS: Basophils % (manual) 0 (0.0-2.0); Blast Cells 0; Eosinophils % (manual) 0 (0-7); Metamyelocytes % 0; Myelocytes % 0; Promyelocytes % 0; Reactive Lymphocytes 0
[2023-05-05] MEDS: LACTULOSE 20Gm/30ML SOLN PO SCH (10:14)
[2023-05-05] MEDS: DOCUSATE SOD 100 MG CAP PO SCH ×2 (10:15→21:42)
[2023-05-05] MEDS: PANTOPRAZOLE 40 MG/10 ML VIAL INJ IV SCH ×2 (10:15→21:33)
[2023-05-05] MEDS: FLUCONAZOLE 100 MG TAB PO SCH (10:15)
[2023-05-05] MEDS: LISINOPRIL 5 MG TAB PO SCH (10:16)
[2023-05-05] MEDS: Escitalopram Oxalate 20MG PO SCH (10:17)
[2023-05-05] MEDS: HEPARIN SODIUM (PORCINE) 5000 UNITS/ML 1ML VIAL SC SCH ×2 (10:29→21:41)
[2023-05-05 11:29] LABS: Band Neutrophils % (manual) 5; Lymphocytes % (manual) 8 (10.0-50.0); Monocytes % (manual) 6 (0-12)
[2023-05-05] MEDS ORDERED: POTASSIUM EFFERVESENT TAB 25 MEQ PO ONE (12:15)
[2023-05-05] MEDS: MUPIROCIN 2% OINT 15gm or 22gm TOP SCH (12:34)
[2023-05-05 13:00] VITALS: BP 89/44
[2023-05-05] MEDS: HYDROcodone-ACET 5/325MG TAB PO PRN ×2 (15:12→23:54)
[2023-05-05 17:00] VITALS: BP 79/39
[2023-05-05] MEDS: CEFEPIME 1 GM in SODIUM CHL 0.9% 50 ML IV SCH (18:37)
[2023-05-05 19:36] VITALS: BP 121/68
[2023-05-05 19:44] LABS: Urine Bacteria NONE SEEN /hpf (None Seen); Urine Blood 1+ /uL (Negative); Urine Specific Gravity 1.008 (1.001-1.035); Urine WBC 34 /hpf (0 - 5)
[2023-05-05] MEDS: ZIPRASIDONE HYDROCHLORIDE PO SCH (21:33)
[2023-05-05] MEDS: clonazePAM 0.5 MG TAB PO SCH (21:33)
[2023-05-05 22:00] VITALS: BP 123/64
[2023-05-06 05:00] VITALS: BP 100/46
[2023-05-06] MEDS: SUCRALFATE 1 GM/10 ML ORAL SUSP PO SCH ×3 (06:38→17:00)
[2023-05-06] MEDS: InsuLIN REG 1unit/0.01ml Soln (100units/ml) SC SCH ×3 (06:38→17:00)
[2023-05-06] MEDS: ACCU-CHEK COMFORT CURVE STRIP VI SCH ×3 (06:38→17:00)
[2023-05-06 09:00] VITALS: BP 121/60
[2023-05-06] MEDS: LISINOPRIL 5 MG TAB PO SCH (09:56)
[2023-05-06] MEDS: MUPIROCIN 2% OINT 15gm or 22gm TOP SCH (09:57)
[2023-05-06] MEDS: BUMETANIDE 2.5mg/10ml (0.25 mg/ml) INJ IV SCH (09:59)
[2023-05-06] MEDS: PANTOPRAZOLE 40 MG/10 ML VIAL INJ IV SCH (09:59)
[2023-05-06] MEDS: LACTULOSE 20Gm/30ML SOLN PO SCH (10:00)
[2023-05-06] MEDS ORDERED: POTASSIUM EFFERVESENT TAB 25 MEQ PO SCH (10:00)
[2023-05-06] MEDS: DOCUSATE SOD 100 MG CAP PO SCH (10:00)
[2023-05-06] MEDS: FAMOTIDINE 20 MG TAB PO SCH (10:00)
[2023-05-06] MEDS: HEPARIN SODIUM (PORCINE) 5000 UNITS/ML 1ML VIAL SC SCH (10:08)
[2023-05-06] MEDS: Escitalopram Oxalate 20MG PO SCH (10:13)
[2023-05-06] MEDS: HYDROcodone-ACET 5/325MG TAB PO PRN (10:37)
[2023-05-06 12:18] VITALS: BP 112/56
[2023-05-06] MEDS ORDERED: SUCR1TAB22 OR (13:23)
[2023-05-06] MEDS ORDERED: BUM1T PO (13:23)
[2023-05-06] MEDS ORDERED: METO5TAB67 PO (14:11)
[2023-05-06 14:33] VITALS: BP 112/56
[2023-05-06 16:42] VITALS: BP 112/57
[2023-05-06] MEDS: CEFEPIME 1 GM in SODIUM CHL 0.9% 50 ML IV SCH (17:00)
== END 2023-05-06 17:50 | disposition home or self-care (01) | DRG 947 ==
LOC: ER 12:27 → EDBD 12:27 → TELE 18:07 → TELE-EAST 04-30 21:53
PROVIDERS: ADMIT Nurse Practitioner; ATTEND Nurse Practitioner
PROC: 3E1M39Z Irrigation of Peritoneal Cavity using Dialysate, Percutaneous Approach (ICD-10-PCS; 2023-04-30)
PROC: 5A1D70Z Performance of Urinary Filtration, Intermittent, Less than 6 Hours Per Day (ICD-10-PCS; principal; 2023-05-01)
PROC: 3E1M39Z Irrigation of Peritoneal Cavity using Dialysate, Percutaneous Approach (ICD-10-PCS; 2023-05-02)
PROC: 3E1M39Z Irrigation of Peritoneal Cavity using Dialysate, Percutaneous Approach (ICD-10-PCS; 2023-05-06)
DX: R18.8 Other ascites (principal); N18.6 End stage renal disease; E87.1 Hypo-osmolality and hyponatremia; I13.2 Hypertensive heart and chronic kidney disease with heart failure and with stage 5 chronic kidney disease, or end stage renal disease; Z68.41 Body mass index [BMI] 40.0-44.9, adult; F32.A Depression, unspecified; K21.9 Gastro-esophageal reflux disease without esophagitis; F41.9 Anxiety disorder, unspecified; E66.01 Morbid (severe) obesity due to excess calories; E11.65 Type 2 diabetes mellitus with hyperglycemia; E11.621 Type 2 diabetes mellitus with foot ulcer; J45.909 Unspecified asthma, uncomplicated; E11.51 Type 2 diabetes mellitus with diabetic peripheral angiopathy without gangrene; D63.1 Anemia in chronic kidney disease; E87.6 Hypokalemia; L97.509 Non-pressure chronic ulcer of other part of unspecified foot with unspecified severity; K59.00 Constipation, unspecified; E11.22 Type 2 diabetes mellitus with diabetic chronic kidney disease; I50.9 Heart failure, unspecified; Z88.0 Allergy status to penicillin; Z88.1 Allergy status to other antibiotic agents; Z88.5 Allergy status to narcotic agent; Z90.710 Acquired absence of both cervix and uterus; Z99.2 Dependence on renal dialysis; Z83.3 Family history of diabetes mellitus; Z82.49 Family history of ischemic heart disease and other diseases of the circulatory system; Z82.0 Family history of epilepsy and other diseases of the nervous system; Z79.4 Long term (current) use of insulin; Z86.718 Personal history of other venous thrombosis and embolism; Z89.412 Acquired absence of left great toe
CPT/HCPCS: 36415; 71045; 73700; 74176; 76705; 80048; 80053; 80074; 80202; 81001; 82306; 82565; 82962; 83036; 83735; 83970; 84100; 84484; 85007; 85025; 85027; 87040; 87081; 87205; 89051; 90935; 93005; 96372; C9113; G0378; J1642; J1815; J2405; P9047

== ENCOUNTER 2024-03-29 15:57 | Inpatient (IN) | payer MEDICARE, MEDICAID ==
[~2024-03-29] VITALS: Ht 177.8 cm; Wt 81.8 kg
[~2024-03-29 15:57] MED LIST changes: +BUM1T PO; -CALC0.5C PO; +METO5TAB67 PO; +SUCR1TAB31 OR; -ZIPR80CA37 PO; +ZIPR80CA43 PO
[2024-03-29 16:48] VITALS: PULSE 78; RESP 14; O2SAT 99
[2024-03-29 17:12] LABS: Basophils # (auto) 0 10 ^3/uL (0-0.2); Basophils % (auto) 0.5 % (0.0-2.0); Eosinophils # (auto) 0.1 10 ^3/uL (0-0.8); Eosinophils % (auto) 0.6 % (0.0-7.0); Hematocrit 22.2 % (36.0-46.0); Hemoglobin 7.2 g/dL (12.2-16.2); Lymphocytes # (auto) 1.6 10 ^3/uL (0.4-5.4); Lymphocytes % (auto) 16.3 % (10.0-50.0); Mean Corpuscular Hemoglobin 30.7 pg (28.0-32.0); Mean Corpuscular Hgb Conc. 32.6 g/dL (32.0-36.0); Mean Corpuscular Volume 94.4 fL (80.0-100.0); Monocytes # (auto) 1.1 10 ^3/uL (0-1.3); Monocytes % (auto) 10.7 % (0.0-12.0); Neutrophils # (auto) 7.2 10 ^3/uL (1.6-8.6); Neutrophils % (auto) 71.9 % (37.0-80.0); Red Blood Cells 2.35 10^6/uL (4.0-5.20); Red Cell Distribution Width 16.8 % (11.8-14.3); White Blood Cell 10.1 10^3/uL (4.4-10.8)
[2024-03-29 17:36] LABS: Albumin 3.5 g/dL (3.2-4.8); Alkaline Phosphatase 107 U/L (46-116); Anion Gap 12 (5-15); Aspartate Aminotransferase 13 U/L (13-40); Blood Urea Nitrogen 43 mg/dL (9-23); Carbon Dioxide 24 mmol/L (20-30); Chloride 105 mmol/L (98-107); Glucose 120 mg/dL (74-106); Potassium 4.4 mmol/L (3.5-5.1); Sodium 141 mmol/L (136-145)
[2024-03-29 17:37] LABS: Alanine Aminotransferase < 9 U/L (7-40); Bilirubin, Total 0.3 mg/dL (0.2-1.0); Total Protein 6.2 g/dL (5.7-8.2)
[2024-03-29 19:35] VITALS: PULSE 72; RESP 20; O2SAT 99
[2024-03-29] MEDS ORDERED: NITROGLYCERIN 0.4 MG SL TAB SL PRN (21:30)
[2024-03-29] MEDS ORDERED: ACETAMINOPHEN 325 MG TAB PO PRN (21:30)
[2024-03-29] MEDS ORDERED: ONDANSETRON HCL 4 MG/2 ML VIAL IV PRN (21:30)
[2024-03-29] MEDS ORDERED: MORPHINE SULFATE INJ 2 MG/ml SYRG IV PRN (21:30)
[2024-03-29] MEDS: PANTOPRAZOLE 40 MG/10 ML VIAL INJ IV SCH (22:20)
[2024-03-29] MEDS: PANTOPRAZOLE 40 MG/10 ML VIAL INJ IV ONE (22:21)
[2024-03-29] MEDS: SODIUM CHLORIDE 0.9% 1,000 ML IV SCH (22:21)
[2024-03-30] VITALS (9 sets, daily range): BP systolic 133–154; BP diastolic 50–81; PULSE 62–85; RESP 14–18; TEMP 98–99; O2SAT 95–100
[2024-03-30 05:21] LABS: Basophils # (auto) 0.1 10 ^3/uL (0-0.2); Eosinophils # (auto) 0.1 10 ^3/uL (0-0.8); Eosinophils % (auto) 0.8 % (0.0-7.0); Lymphocytes # (auto) 1.5 10 ^3/uL (0.4-5.4); Mean Corpuscular Hgb Conc. 33.2 g/dL (32.0-36.0)
[2024-03-30 05:23] LABS: Basophils % (auto) 0.7 % (0.0-2.0); Hemoglobin 7.3 g/dL (12.2-16.2); Lymphocytes % (auto) 14.5 % (10.0-50.0); Mean Corpuscular Hemoglobin 31.1 pg (28.0-32.0); Mean Corpuscular Volume 93.6 fL (80.0-100.0); Monocytes # (auto) 1.5 10 ^3/uL (0-1.3); Monocytes % (auto) 13.8 % (0.0-12.0); Neutrophils # (auto) 7.4 10 ^3/uL (1.6-8.6); Neutrophils % (auto) 70.2 % (37.0-80.0); Red Blood Cells 2.35 10^6/uL (4.0-5.20); Red Cell Distribution Width 16.5 % (11.8-14.3); White Blood Cell 10.6 10^3/uL (4.4-10.8)
[2024-03-30 05:37] LABS: Albumin 3.5 g/dL (3.2-4.8); Alkaline Phosphatase 105 U/L (46-116); Anion Gap 13 (5-15); Aspartate Aminotransferase 13 U/L (13-40); BUN/Creatinine Ratio 4.9 (10.0-20.0); Bilirubin, Total 0.5 mg/dL (0.2-1.0); Blood Urea Nitrogen 43 mg/dL (9-23); Calcium 9.1 mg/dL (8.5-10.1); Carbon Dioxide 21 mmol/L (20-30); Chloride 104 mmol/L (98-107); Glucose 106 mg/dL (74-106); Potassium 4.2 mmol/L (3.5-5.1); Sodium 138 mmol/L (136-145); Total Protein 6.2 g/dL (5.7-8.2)
[2024-03-30 05:41] LABS: Alanine Aminotransferase < 9 U/L (7-40)
[2024-03-30] MEDS ORDERED: ENOXAPARIN SOD 40 MG/0.4 ML SYRINGE SC SCH (10:00)
[2024-03-30] MEDS ORDERED: APIX5TAB PO (13:39)
[2024-03-30 14:25] LABS: Triglycerides 91 mg/dL (< 150)
[2024-03-30 14:26] LABS: Cholesterol 78 mg/dL (< 200); LDL Cholesterol 32 mg/dL (< 100)
[2024-03-30 14:27] LABS: HDL Cholesterol 30 mg/dL (40-59)
[2024-03-30] MEDS ORDERED: SEVELAMER CARBONATE 3200 MG PO SCH (18:00)
[2024-03-30] MEDS: SUCRALFATE 1 GM TAB PO SCH (18:27)
[2024-03-30] MEDS: SEVELAMER 800 MG TAB PO SCH (18:27)
[2024-03-30 19:32] LABS: Phosphorus 5.4 mg/dL (2.4-5.1)
[2024-03-30] MEDS: clonazePAM 0.5 MG TAB PO SCH (21:46)
[2024-03-30] MEDS: APIXABAN 5 MG TAB PO SCH (21:46)
[2024-03-30] MEDS ORDERED: HEPARIN SODIUM (PORCINE) 5000 UNITS/ML 1ML VIAL SC SCH (22:00)
[2024-03-30 22:13] LABS: % Iron Saturation 23.7 % (15-50)
[2024-03-30 22:25] LABS: Folate (Folic Acid) 19.64 ng/mL (>5.38)
[2024-03-30 22:26] LABS: Free T4 (Free Thyroxine) 1.63 ng/dL (0.89-1.76)
[2024-03-31] VITALS (11 sets, daily range): BP systolic 117–149; BP diastolic 44–74; PULSE 60–67; RESP 14–18; TEMP 97.8–98.8; O2SAT 98–100
[2024-03-31] MEDS: CITALOPRAM HYDROBR 20 MG TAB PO SCH (09:16)
[2024-03-31] MEDS: PANTOPRAZOLE 40 MG TAB PO SCH (09:17)
[2024-03-31] MEDS: LISINOPRIL 5 MG TAB PO SCH (09:17)
[2024-03-31] MEDS: cefTRIAXone 1GM/50ML D5W 50 ML IV SCH (09:18)
[2024-03-31] MEDS ORDERED: PATIENTS OWN MEDICATION (Escitalopram Oxalate (Lexapro) 1 TAB) PO SCH (10:00)
[2024-03-31 11:49] LABS: INR 1.11 (0.9-1.15); Partial Thromboplastin Time 29.7 SEC (24.5-34.5); Prothrombin Time 11.7 sec (9.3-11.8)
[2024-03-31 12:13] LABS: Basophils # (auto) 0 10 ^3/uL (0-0.2); Basophils % (auto) 0.4 % (0.0-2.0); Eosinophils # (auto) 0.1 10 ^3/uL (0-0.8); Eosinophils % (auto) 1.5 % (0.0-7.0); Hematocrit 21.4 % (36.0-46.0); Hemoglobin 7.1 g/dL (12.2-16.2); Lymphocytes # (auto) 1.3 10 ^3/uL (0.4-5.4); Lymphocytes % (auto) 14.3 % (10.0-50.0); Mean Corpuscular Hemoglobin 31.1 pg (28.0-32.0); Mean Corpuscular Hgb Conc. 33.3 g/dL (32.0-36.0); Mean Corpuscular Volume 93.5 fL (80.0-100.0); Monocytes # (auto) 0.9 10 ^3/uL (0-1.3); Neutrophils # (auto) 6.9 10 ^3/uL (1.6-8.6); Neutrophils % (auto) 73.8 % (37.0-80.0); Red Blood Cells 2.28 10^6/uL (4.0-5.20); Red Cell Distribution Width 16.3 % (11.8-14.3); White Blood Cell 9.3 10^3/uL (4.4-10.8)
[2024-03-31] MEDS ORDERED: ZIPR40CA8 PO (13:47)
[2024-03-31] MEDS ORDERED: SUCR1TAB PO (13:47)
[2024-03-31] MEDS ORDERED: CLON-853 PO (13:47)
[2024-03-31] MEDS ORDERED: LISI40TA16 PO (13:47)
[2024-03-31] MEDS ORDERED: APIX2.5T PO (13:47)
[2024-03-31] MEDS ORDERED: ZIPR20CA27 PO (13:50)
[2024-03-31] MEDS ORDERED: LAMO25TA2 PO (14:04)
[2024-03-31] MEDS ORDERED: FLUT50SP31 EACHNOSTRI (14:04)
[2024-03-31] MEDS ORDERED: FERR1TAB17 PO (14:04)
[2024-03-31] MEDS ORDERED: DIPH25CA66 PO (14:04)
[2024-03-31] MEDS ORDERED: BENZ1TAB6 PO (14:04)
[2024-03-31] MEDS ORDERED: DEXL30CA6 PO (14:04)
[2024-03-31] MEDS ORDERED: SUCR5CHW PO (14:04)
[2024-03-31] MEDS: hydrALAZINE HCL 20 MG/ML VL IV PRN (15:51)
[2024-04-01] VITALS (8 sets, daily range): BP systolic 133–158; BP diastolic 46–72; PULSE 66–72; RESP 14–20; TEMP 97.7–98.8; O2SAT 96–99
[2024-04-01] MEDS ORDERED: SODIUM CHL 0.9% 1000 ML BAG XX ONE (07:00)
[2024-04-01 07:04] LABS: Basophils # (auto) 0 10 ^3/uL (0-0.2); Eosinophils # (auto) 0.2 10 ^3/uL (0-0.8); Lymphocytes # (auto) 1.5 10 ^3/uL (0.4-5.4); Monocytes # (auto) 0.9 10 ^3/uL (0-1.3); Nucleated Red Blood Cells % 0.1 %
[2024-04-01 07:07] LABS: Basophils % (auto) 0.5 % (0.0-2.0); Eosinophils % (auto) 2.7 % (0.0-7.0); Hematocrit 24.5 % (36.0-46.0); Hemoglobin 8.1 g/dL (12.2-16.2); Lymphocytes % (auto) 20.4 % (10.0-50.0); Mean Corpuscular Hemoglobin 29.9 pg (28.0-32.0); Mean Corpuscular Hgb Conc. 33.2 g/dL (32.0-36.0); Mean Corpuscular Volume 90.1 fL (80.0-100.0); Monocytes % (auto) 11.9 % (0.0-12.0); Neutrophils # (auto) 4.8 10 ^3/uL (1.6-8.6); Neutrophils % (auto) 64.5 % (37.0-80.0); Red Blood Cells 2.72 10^6/uL (4.0-5.20); Red Cell Distribution Width 16.8 % (11.8-14.3); White Blood Cell 7.4 10^3/uL (4.4-10.8)
[2024-04-01 07:37] LABS: Anion Gap 10 (5-15); Carbon Dioxide 22 mmol/L (20-30); Chloride 104 mmol/L (98-107); Potassium 4.9 mmol/L (3.5-5.1); Sodium 136 mmol/L (136-145)
[2024-04-01 07:38] LABS: Calcium 8.9 mg/dL (8.5-10.1)
[2024-04-01 07:43] LABS: BUN/Creatinine Ratio 5.5 (10.0-20.0); Blood Urea Nitrogen 55 mg/dL (9-23); Glucose 115 mg/dL (74-106)
[2024-04-01 09:01] LABS: Hepatitis B Surface Antigen Negative (Negative)
[2024-04-01 09:22] LABS: Hepatitis C Antibody Negative (Negative)
[2024-04-01] MEDS: LIDOCAINE 2%HCL (LOCAL ANESTH.) INJ 20ML MDV ONE (09:49)
[2024-04-01] MEDS: fentaNYL CITRATE 100 MCG/2 ML VL ONE (13:36)
[2024-04-01] MEDS: MIDAZOLAM HCL 2MG/2ML 2ml VIAL (1mg/ml) ONE (13:36)
[2024-04-01] MEDS: HEPARIN SODIUM (PORCINE) 5000 UNITS/ML 1ML VIAL ONE (13:36)
[2024-04-01] MEDS: ceFAZolin 1GM/50ML 50 ML IV ONE (13:36)
[2024-04-01] MEDS ORDERED: hydrALAZINE HCL 20 MG/ML VL ONE (13:48)
[2024-04-01] MEDS ORDERED: EPOETIN ALFA-EPBX 10,000 UNIT/1ML VIAL SC ONE (21:00)
[2024-04-01] MEDS: APIXABAN 5 MG TAB PO SCH (21:18)
[2024-04-02] VITALS (8 sets, daily range): BP systolic 114–146; BP diastolic 42–65; PULSE 60–76; RESP 16–18; TEMP 97.1–98.8; O2SAT 96–98
[2024-04-02 18:24] LABS: Basophils # (auto) 0 10 ^3/uL (0-0.2); Basophils % (auto) 0.6 % (0.0-2.0); Eosinophils # (auto) 0.1 10 ^3/uL (0-0.8); Hemoglobin 8.3 g/dL (12.2-16.2); Monocytes # (auto) 0.8 10 ^3/uL (0-1.3); Neutrophils # (auto) 3.8 10 ^3/uL (1.6-8.6)
[2024-04-02 18:26] LABS: Eosinophils % (auto) 1.9 % (0.0-7.0); Hematocrit 25.2 % (36.0-46.0); Lymphocytes # (auto) 1.3 10 ^3/uL (0.4-5.4); Lymphocytes % (auto) 22.2 % (10.0-50.0); Mean Corpuscular Hemoglobin 29.9 pg (28.0-32.0); Mean Corpuscular Hgb Conc. 33.2 g/dL (32.0-36.0); Mean Corpuscular Volume 90.3 fL (80.0-100.0); Monocytes % (auto) 12.9 % (0.0-12.0); Neutrophils % (auto) 62.4 % (37.0-80.0); Red Blood Cells 2.79 10^6/uL (4.0-5.20); Red Cell Distribution Width 16.7 % (11.8-14.3); White Blood Cell 6.1 10^3/uL (4.4-10.8)
[2024-04-02 18:42] LABS: Albumin 3.8 g/dL (3.2-4.8); Alkaline Phosphatase 108 U/L (46-116); Anion Gap 10 (5-15); Aspartate Aminotransferase 10 U/L (13-40); BUN/Creatinine Ratio 5.5 (10.0-20.0); Calcium 9.6 mg/dL (8.5-10.1); Carbon Dioxide 26 mmol/L (20-30); Chloride 102 mmol/L (98-107); Glucose 130 mg/dL (74-106); Potassium 3.7 mmol/L (3.5-5.1); Sodium 138 mmol/L (136-145)
[2024-04-02 18:43] LABS: Bilirubin, Total 0.3 mg/dL (0.2-1.0); Total Protein 6.6 g/dL (5.7-8.2)
[2024-04-02 18:47] LABS: Alanine Aminotransferase < 9 U/L (7-40); Blood Urea Nitrogen 35 mg/dL (9-23)
[2024-04-03] VITALS (7 sets, daily range): BP systolic 105–158; BP diastolic 43–82; PULSE 62–70; RESP 16–19; TEMP 96.9–98.7; O2SAT 91–99
[2024-04-03 06:36] LABS: Basophils # (auto) 0 10 ^3/uL (0-0.2); Basophils % (auto) 0.7 % (0.0-2.0); Eosinophils # (auto) 0.2 10 ^3/uL (0-0.8); Eosinophils % (auto) 3.7 % (0.0-7.0); Hematocrit 27.4 % (36.0-46.0); Hemoglobin 8.9 g/dL (12.2-16.2); Lymphocytes # (auto) 1.7 10 ^3/uL (0.4-5.4); Lymphocytes % (auto) 26.1 % (10.0-50.0); Mean Corpuscular Hemoglobin 30.5 pg (28.0-32.0); Mean Corpuscular Hgb Conc. 32.5 g/dL (32.0-36.0); Monocytes % (auto) 14.9 % (0.0-12.0); Neutrophils # (auto) 3.6 10 ^3/uL (1.6-8.6); Neutrophils % (auto) 54.6 % (37.0-80.0); Nucleated Red Blood Cells % 0.2 %; Red Blood Cells 2.92 10^6/uL (4.0-5.20); Red Cell Distribution Width 17.2 % (11.8-14.3); White Blood Cell 6.6 10^3/uL (4.4-10.8)
[2024-04-03 06:54] LABS: Albumin 3.8 g/dL (3.2-4.8); Alkaline Phosphatase 106 U/L (46-116); Anion Gap 10 (5-15); Aspartate Aminotransferase < 8 U/L (13-40); BUN/Creatinine Ratio 5.6 (10.0-20.0); Bilirubin, Total 0.3 mg/dL (0.2-1.0); Blood Urea Nitrogen 42 mg/dL (9-23); Calcium 9.7 mg/dL (8.5-10.1); Carbon Dioxide 27 mmol/L (20-30); Chloride 103 mmol/L (98-107); Glucose 104 mg/dL (74-106); Potassium 4.2 mmol/L (3.5-5.1); Sodium 140 mmol/L (136-145); Total Protein 6.7 g/dL (5.7-8.2)
[2024-04-03 07:00] LABS: Alanine Aminotransferase < 9 U/L (7-40)
[2024-04-04 01:00] VITALS: BP 109/47; PULSE 71; RESP 18; TEMP 98.3; O2SAT 98
[2024-04-04 05:00] VITALS: BP 122/47; PULSE 69; RESP 18; TEMP 97.6; O2SAT 98
[2024-04-04 08:00] VITALS: PULSE 66; PULSE 68; RESP 16; O2SAT 96
[2024-04-04 08:31] VITALS: BP 143/54; PULSE 68; RESP 16; TEMP 98.7; O2SAT 96
[2024-04-04 12:21] VITALS: BP 159/76; PULSE 72; RESP 19; TEMP 98.1; O2SAT 95
[2024-04-04 13:14] VITALS: BP 133/71; PULSE 77; RESP 16; TEMP 98.1; O2SAT 93
== END 2024-04-04 14:45 | disposition home or self-care (01) | DRG 673 ==
LOC: ER 15:57 → TELE-WESTW 21:24 → ER 21:24 → TELE 21:24 → TELE-WESTW 03-30 02:25
PROVIDERS: ADMIT Nurse Practitioner; ATTEND Nurse Practitioner
PROC: 30233N1 Transfusion of Nonautologous Red Blood Cells into Peripheral Vein, Percutaneous Approach (ICD-10-PCS; 2024-03-31)
PROC: 0JH63XZ Insertion of Tunneled Vascular Access Device into Chest Subcutaneous Tissue and Fascia, Percutaneous Approach (ICD-10-PCS; principal; 2024-04-01)
PROC: 06H033Z Insertion of Infusion Device into Inferior Vena Cava, Percutaneous Approach (ICD-10-PCS; 2024-04-01)
PROC: B543ZZA Ultrasonography of Right Jugular Veins, Guidance (ICD-10-PCS; 2024-04-01)
PROC: B519ZZA Fluoroscopy of Inferior Vena Cava, Guidance (ICD-10-PCS; 2024-04-01)
PROC: 5A1D70Z Performance of Urinary Filtration, Intermittent, Less than 6 Hours Per Day (ICD-10-PCS; 2024-04-01)
DX: T82.42XA Displacement of vascular dialysis catheter, initial encounter (principal); G93.41 Metabolic encephalopathy; N18.6 End stage renal disease; I13.2 Hypertensive heart and chronic kidney disease with heart failure and with stage 5 chronic kidney disease, or end stage renal disease; D63.1 Anemia in chronic kidney disease; E11.22 Type 2 diabetes mellitus with diabetic chronic kidney disease; R47.1 Dysarthria and anarthria; E03.9 Hypothyroidism, unspecified; F31.9 Bipolar disorder, unspecified; K21.9 Gastro-esophageal reflux disease without esophagitis; F41.9 Anxiety disorder, unspecified; I50.9 Heart failure, unspecified; Z99.2 Dependence on renal dialysis; Z82.49 Family history of ischemic heart disease and other diseases of the circulatory system; Z86.718 Personal history of other venous thrombosis and embolism; Z88.1 Allergy status to other antibiotic agents; Z88.5 Allergy status to narcotic agent; Z79.899 Other long term (current) drug therapy; Z90.49 Acquired absence of other specified parts of digestive tract; Z90.710 Acquired absence of both cervix and uterus; Z82.0 Family history of epilepsy and other diseases of the nervous system; Z88.0 Allergy status to penicillin; Z79.01 Long term (current) use of anticoagulants; Z83.3 Family history of diabetes mellitus; Z82.3 Family history of stroke
CPT/HCPCS: 36415; 36558; 70450; 70551; 71045; 77001; 80048; 80053; 80061; 82140; 82306; 82607; 82728; 82746; 82962; 83540; 83550; 83605; 83735; 83880; 83970; 84100; 84439; 84443; 84484; 85025; 85610; 85730; 86803; 86850; 86900; 86901; 86920; 87340; 90935; 92523; 92610; 93005; 95819; 96374; 97110; 97116; 97163; 97530; 99152; C1894; C9113; G0378; J1642; J2250

== ENCOUNTER → 2024-04-29 | Day surgery (SDC) | payer MEDICARE, MEDICAID ==
[2024-04-27 11:31] LABS: Basophils # (auto) 0.1 10 ^3/uL (0-0.2); Basophils % (auto) 0.9 % (0.0-2.0); Eosinophils # (auto) 0 10 ^3/uL (0-0.8); Eosinophils % (auto) 0.6 % (0.0-7.0); Hematocrit 29.8 % (36.0-46.0); Hemoglobin 9.8 g/dL (12.2-16.2); Lymphocytes # (auto) 1.7 10 ^3/uL (0.4-5.4); Lymphocytes % (auto) 25.7 % (10.0-50.0); Mean Corpuscular Hemoglobin 30.2 pg (28.0-32.0); Mean Corpuscular Hgb Conc. 32.9 g/dL (32.0-36.0); Mean Corpuscular Volume 91.8 fL (80.0-100.0); Monocytes # (auto) 0.5 10 ^3/uL (0-1.3); Monocytes % (auto) 8.1 % (0.0-12.0); Neutrophils # (auto) 4.2 10 ^3/uL (1.6-8.6); Neutrophils % (auto) 64.7 % (37.0-80.0); Red Blood Cells 3.24 10^6/uL (4.0-5.20); Red Cell Distribution Width 17.1 % (11.8-14.3); White Blood Cell 6.5 10^3/uL (4.4-10.8)
[2024-04-27 11:46] LABS: INR 1.11 (0.9-1.15); Partial Thromboplastin Time 28.2 SEC (24.5-34.5); Prothrombin Time 11.7 sec (9.3-11.8)
[2024-04-27 12:04] LABS: Albumin 3.9 g/dL (3.2-4.8); Alkaline Phosphatase 115 U/L (46-116); Anion Gap 10 (5-15); Aspartate Aminotransferase 11 U/L (13-40); BUN/Creatinine Ratio 3.9 (10.0-20.0); Bilirubin, Total 0.7 mg/dL (0.2-1.0); Blood Urea Nitrogen 17 mg/dL (9-23); Calcium 9.1 mg/dL (8.5-10.1); Carbon Dioxide 26 mmol/L (20-30); Chloride 103 mmol/L (98-107); Glucose 111 mg/dL (74-106); Potassium 3.6 mmol/L (3.5-5.1); Sodium 139 mmol/L (136-145); Total Protein 6.9 g/dL (5.7-8.2)
[2024-04-27 12:07] LABS: Alanine Aminotransferase < 9 U/L (7-40)
[~2024-04-29] VITALS: Ht 177.8 cm; Wt 86.2 kg
[~2024-04-29] MED LIST changes: +ACCU-CHEK COMFORT CURVE STRIP VI ONE; +APIX2.5T PO; +BENZ1TAB6 PO; -BUM1T PO; +CLON-853 PO; -CLON0.5T3 PO; +DEXL30CA6 PO; +DIPH25CA66 PO; +FERR1TAB17 PO; +FLUT50SP31 EACHNOSTRI; +HYDROmorphone HCL 2 MG/ML VL/or syr IV PRN; +LAMO25TA2 PO; -LISI-275 PO; +LISI40TA16 PO; +METOCLOPRAMIDE HCL 5MG/ml INJ 2ml VIAL IV ONE; +MORPHINE SULFATE INJ 2 MG/ml SYRG IV PRN; +SIMETHICONE 40 MG/0.6 ML ORAL DROP ONE; +SUCR1TAB PO; -SUCR1TAB31 OR; +SUCR5CHW PO; +ZIPR20CA27 PO; +ZIPR40CA8 PO; -ZIPR80CA43 PO; +fentaNYL CITRATE 100 MCG/2 ML VL IV PRN
[2024-04-29 07:30] VITALS: BP 150/70; PULSE 70; RESP 18; TEMP 97.2; O2SAT 99
== END | disposition home or self-care (01) ==
LOC: GI 07:06
PROVIDERS: ATTEND Internal Medicine Gastroenterology
DX: R19.7 Diarrhea, unspecified (principal); Z53.8 Procedure and treatment not carried out for other reasons; E11.22 Type 2 diabetes mellitus with diabetic chronic kidney disease; N18.6 End stage renal disease; F31.9 Bipolar disorder, unspecified; I50.9 Heart failure, unspecified; F41.9 Anxiety disorder, unspecified; Z86.718 Personal history of other venous thrombosis and embolism; Z90.710 Acquired absence of both cervix and uterus; Z99.2 Dependence on renal dialysis; Z79.899 Other long term (current) drug therapy; Z98.890 Other specified postprocedural states; Z83.3 Family history of diabetes mellitus; Z82.49 Family history of ischemic heart disease and other diseases of the circulatory system; Z88.1 Allergy status to other antibiotic agents; Z88.5 Allergy status to narcotic agent; Z88.0 Allergy status to penicillin; Z88.8 Allergy status to other drugs, medicaments and biological substances
CPT/HCPCS: 36415; 80053; 82962; 85025; 85610; 85730